=== PATIENT | male | born 1955 | race Caucasian/White ===

== ENCOUNTER 2018-04-22 19:13 | Inpatient (IN) ==
[2018-04-22] MEDS ORDERED: ALUM/MAG/SIMETH/LIDO VISC 1:1 30 ML BOTTLE PO STA (19:34)
[2018-04-22] MEDS ORDERED: methylPREDNISolone SOD SUC 125 MG/2 ML VIAL IV STA (19:34)
[2018-04-22] MEDS ORDERED: SODIUM CHLORIDE 0.9% 500 ML IV STA (19:34)
[2018-04-22] MEDS ORDERED: ASPIRIN 325 MG TABLET PO STA (19:34)
[2018-04-22] MEDS ORDERED: ONDANSETRON 4 MG/2 ML VIAL IV STA (19:34)
[2018-04-22] MEDS ORDERED: NITROGLYCERIN 2% OINT 1 INCH/GM PACK TOP STA (19:34)
[2018-04-22] MEDS ORDERED: ALBUTEROL/IPRATROPIUM 3 ML NEB RESP TX STA (19:34)
[2018-04-22 19:52] LABS: Basophils # 0.1 10*3/uL (0.0-0.2); Basophils % 0.5 % (0.0-0.8); Eosinophils # 0.2 10*3/uL (0.0-0.87); Eosinophils % 1.2 % (0.00-10.9); Hematocrit 44.3 VOL% (42.0-52.0); Hemoglobin 14.7 GM/DL (14.0-18.0); Immature Granulocytes % 0.6 %; Lymphocytes # 2.5 10*3/uL (1.4-4.0); Lymphocytes % 14.9 % (21.2-54.2); Mean Corpuscular HGB Conc 33.2 GM/DL (32-36); Mean Corpuscular Hemoglobin 27 PG (27-34); Mean Corpuscular Volume 81.9 FL (87-102); Mean Platelet Volume 8.8 FL (9.6-12.0); Monocytes # 1.3 10*3/uL (0.11-0.8); Monocytes % 7.6 % (1.7-12.7); Neutrophils # 12.4 10*3/uL (1.4-7.4); Neutrophils % 75.2 % (38.7-73.9); Platelet Count 324 T/CUMM (130-400); Red Blood Count 5.41 MC/CUMM (3.8-5.5); Red Cell Distribution Width 15.6 % (9.3-17.3); White Blood Count 16.4 T/CUMM (4-12)
[2018-04-22 19:59] LABS: PT Patient Result 10.5 SECS
[2018-04-22 20:11] LABS: Albumin 3.3 G/DL (3.4-5.0); Bilirubin,Total 0.6 MG/DL (0.2-1.0); Calcium 9.1 MG/DL (8.5-10.1); Potassium 3.9 MMOL/L (3.5-5.1); Total Protein 7.2 G/DL (6.4-8.3)
[2018-04-22] MEDS ORDERED: PIPERACILLIN/TAZOBACTAM 3,375 MG in SODIUM CHLORIDE 0.9% 100 ML IV STA (20:33)
[2018-04-22] MEDS ORDERED: ZALEPLON 5 MG CAPSULE PO PRN (22:44)
[2018-04-22] MEDS ORDERED: GLUCAGON 1 MG VIAL IM PRN (22:44)
[2018-04-22] MEDS ORDERED: DEXTROSE 50% 25 GM/50 ML VIAL IV PRN (22:44)
[2018-04-22] MEDS ORDERED: ONDANSETRON 4 MG/2 ML VIAL IV PRN (22:44)
[2018-04-23] MEDS: ALBUTEROL/IPRATROPIUM 3 ML NEB RESP TX SCH ×4 (01:17→20:12)
[2018-04-23 02:57] LABS: Basophils % 0.1 % (0.0-0.8); Hematocrit 41.6 VOL% (42.0-52.0); Hemoglobin 14.1 GM/DL (14.0-18.0); Immature Granulocytes % 0.8 %; Immature Granulocytes Absolute 0.08 #; Lymphocytes # 0.9 10*3/uL (1.4-4.0); Lymphocytes % 8.7 % (21.2-54.2); Mean Corpuscular HGB Conc 33.9 GM/DL (32-36); Mean Corpuscular Hemoglobin 27 PG (27-34); Mean Corpuscular Volume 80.8 FL (87-102); Mean Platelet Volume 8.7 FL (9.6-12.0); Monocytes # 0.1 10*3/uL (0.11-0.8); Monocytes % 1.1 % (1.7-12.7); Neutrophils # 8.8 10*3/uL (1.4-7.4); Neutrophils % 89.3 % (38.7-73.9); Platelet Count 269 T/CUMM (130-400); Red Blood Count 5.15 MC/CUMM (3.8-5.5); Red Cell Distribution Width 15.7 % (9.3-17.3); White Blood Count 9.9 T/CUMM (4-12)
[2018-04-23 03:35] LABS: Bilirubin,Total 0.7 MG/DL (0.2-1.0); Calcium 8.5 MG/DL (8.5-10.1); Potassium 4.2 MMOL/L (3.5-5.1); Total Protein 6.6 G/DL (6.4-8.3)
[2018-04-23] MEDS ORDERED: PIPERACILLIN/TAZOBACTAM 3,375 MG in SODIUM CHLORIDE 0.9% 100 ML IV SCH (06:00)
[2018-04-23] MEDS: PANTOPRAZOLE 40 MG TABLET PO SCH (08:05)
[2018-04-23] MEDS: INSULIN REGULAR 100 UNIT/ML SUBCUT SCH ×4 (08:05→20:38)
[2018-04-23 09:16] LABS: PT Patient Result 10.7 SECS; Partial Thromboplastin Time 25.5 SECS (0-40)
[2018-04-23] MEDS: methylPREDNISolone SOD SUC 40 MG/1 ML VIAL IV SCH ×2 (10:17→20:38)
[2018-04-23] MEDS: PIPERACILLIN/TAZOBACTAM 3,375 MG in SODIUM CHLORIDE 0.9% 100 ML IV SCH ×2 (13:51→21:53)
[2018-04-24] MEDS: ALBUTEROL/IPRATROPIUM 3 ML NEB RESP TX SCH ×4 (01:43→19:10)
[2018-04-24 03:53] LABS: Basophils % 0.1 % (0.0-0.8); Hemoglobin 14.6 GM/DL (14.0-18.0); Immature Granulocytes % 0.8 %; Immature Granulocytes Absolute 0.14 #; Lymphocytes # 1.5 10*3/uL (1.4-4.0); Lymphocytes % 8.5 % (21.2-54.2); Mean Corpuscular HGB Conc 33.2 GM/DL (32-36); Mean Corpuscular Hemoglobin 27 PG (27-34); Mean Corpuscular Volume 82.2 FL (87-102); Mean Platelet Volume 8.9 FL (9.6-12.0); Monocytes # 0.7 10*3/uL (0.11-0.8); Monocytes % 3.9 % (1.7-12.7); Neutrophils % 86.7 % (38.7-73.9); Platelet Count 299 T/CUMM (130-400); Red Blood Count 5.35 MC/CUMM (3.8-5.5); Red Cell Distribution Width 15.7 % (9.3-17.3); White Blood Count 17.3 T/CUMM (4-12)
[2018-04-24 03:57] LABS: Calcium 8.7 MG/DL (8.5-10.1); Osmolality,Calculated 278.1 MOS/KG (273-304); Potassium 4.1 MMOL/L (3.5-5.1)
[2018-04-24] MEDS: PIPERACILLIN/TAZOBACTAM 3,375 MG in SODIUM CHLORIDE 0.9% 100 ML IV SCH ×3 (07:15→20:47)
[2018-04-24] MEDS: INSULIN REGULAR 100 UNIT/ML SUBCUT SCH ×4 (07:52→22:03)
[2018-04-24] MEDS: PANTOPRAZOLE 40 MG TABLET PO SCH (08:22)
[2018-04-24] MEDS: methylPREDNISolone SOD SUC 40 MG/1 ML VIAL IV SCH ×2 (09:36→20:47)
[2018-04-24] MEDS: CITALOPRAM 40 MG TABLET PO SCH (13:02)
[2018-04-24] MEDS: metFORMIN 500 MG TABLET PO SCH (16:43)
[2018-04-24] MEDS ORDERED: INSULIN GLARGINE 100 UNIT/ML SUBCUT SCH (21:00)
[2018-04-25] MEDS: ALBUTEROL/IPRATROPIUM 3 ML NEB RESP TX SCH ×4 (00:43→19:17)
[2018-04-25] MEDS: PIPERACILLIN/TAZOBACTAM 3,375 MG in SODIUM CHLORIDE 0.9% 100 ML IV SCH ×3 (05:03→21:03)
[2018-04-25] MEDS: ALUMINUM/MAGNES/SIMETH MAX STR 30 ML UDCUP PO PRN (08:00)
[2018-04-25] MEDS: methylPREDNISolone SOD SUC 40 MG/1 ML VIAL IV SCH ×2 (08:02→21:01)
[2018-04-25] MEDS: metFORMIN 500 MG TABLET PO SCH ×2 (08:04→16:53)
[2018-04-25] MEDS: CITALOPRAM 40 MG TABLET PO SCH (08:04)
[2018-04-25] MEDS: PANTOPRAZOLE 40 MG TABLET PO SCH (08:04)
[2018-04-25] MEDS: INSULIN REGULAR 100 UNIT/ML SUBCUT SCH ×4 (08:04→21:05)
[2018-04-25] MEDS: INSULIN GLARGINE 100 UNIT/ML SUBCUT SCH (21:05)
[2018-04-26] MEDS: ALBUTEROL/IPRATROPIUM 3 ML NEB RESP TX SCH ×4 (00:27→19:05)
[2018-04-26] MEDS: PIPERACILLIN/TAZOBACTAM 3,375 MG in SODIUM CHLORIDE 0.9% 100 ML IV SCH ×3 (04:48→21:02)
[2018-04-26 06:59] LABS: Basophils % 0.2 % (0.0-0.8); Eosinophils % 0.1 % (0.00-10.9); Hemoglobin 14.6 GM/DL (14.0-18.0); Immature Granulocytes % 1.6 %; Immature Granulocytes Absolute 0.27 #; Lymphocytes # 2.2 10*3/uL (1.4-4.0); Lymphocytes % 12.7 % (21.2-54.2); Mean Corpuscular Hemoglobin 28 PG (27-34); Mean Corpuscular Volume 81.1 FL (87-102); Mean Platelet Volume 9.3 FL (9.6-12.0); Monocytes # 1.1 10*3/uL (0.11-0.8); Monocytes % 6.2 % (1.7-12.7); Neutrophils # 13.4 10*3/uL (1.4-7.4); Neutrophils % 79.2 % (38.7-73.9); Platelet Count 327 T/CUMM (130-400); Red Cell Distribution Width 16.3 % (9.3-17.3)
[2018-04-26] MEDS ORDERED: PROMETHAZINE 25 MG/1 ML VIAL IM ONE (07:00)
[2018-04-26 07:23] LABS: Calcium 8.9 MG/DL (8.5-10.1); Osmolality,Calculated 283.8 MOS/KG (273-304); Potassium 3.9 MMOL/L (3.5-5.1)
[2018-04-26] MEDS ORDERED: LIDOCAINE 1% 20 ML VIAL MISC INJ ONE (07:30)
[2018-04-26] MEDS ORDERED: MIDAZOLAM 2 MG/2 ML VIAL IV ONE (07:30)
[2018-04-26] MEDS ORDERED: MIDAZOLAM 2 MG/2 ML VIAL ONE (07:52)
[2018-04-26] MEDS ORDERED: LIDOCAINE 2% 20 ML VIAL RESP TX ONE (08:25)
[2018-04-26] MEDS ORDERED: LIDOCAINE 2% TOP JELLY 5 ML TUBE TOP ONE (08:38)
[2018-04-26] MEDS: INSULIN REGULAR 100 UNIT/ML SUBCUT SCH ×4 (08:40→21:22)
[2018-04-26] MEDS: CITALOPRAM 40 MG TABLET PO SCH ×2 (09:17→12:37)
[2018-04-26] MEDS: methylPREDNISolone SOD SUC 40 MG/1 ML VIAL IV SCH ×3 (09:17→21:02)
[2018-04-26] MEDS: PANTOPRAZOLE 40 MG TABLET PO SCH ×2 (09:17→12:37)
[2018-04-26] MEDS: metFORMIN 500 MG TABLET PO SCH ×3 (09:17→16:01)
[2018-04-26] MEDS ORDERED: NITROGLYCERIN SL 0.4 MG TABLET SL PRN (18:00)
[2018-04-26] MEDS ORDERED: ASPIRIN CHEW 81 MG TABLET PO ONE ×2 (18:00→18:02)
[2018-04-26] MEDS: ALUMINUM/MAGNES/SIMETH MAX STR 30 ML UDCUP PO PRN (18:10)
[2018-04-26 18:27] LABS: ABG Base Excess 0.4 MMOL/L (-2.5-2.5); ABG HCO3 24.7 MMOL/L (20-26); ABG Oxygen Saturation 96.8 % (95-100); ABG PCO2 41.3 MM HG (35-48); ABG PH 7.396 (7.35-7.45); ABG PO2 90.4 MM HG (80-95); ABG TCO2 21.8 MMOL/L (23-27)
[2018-04-26 18:40] LABS: Basophils % 0.1 % (0.0-0.8); Eosinophils % 0.1 % (0.00-10.9); Hematocrit 42.6 VOL% (42.0-52.0); Hemoglobin 13.8 GM/DL (14.0-18.0); Immature Granulocytes % 0.7 %; Immature Granulocytes Absolute 0.13 #; Lymphocytes # 1.1 10*3/uL (1.4-4.0); Lymphocytes % 6.1 % (21.2-54.2); Mean Corpuscular HGB Conc 32.4 GM/DL (32-36); Mean Corpuscular Hemoglobin 27 PG (27-34); Mean Corpuscular Volume 84.4 FL (87-102); Mean Platelet Volume 9.3 FL (9.6-12.0); Monocytes # 0.7 10*3/uL (0.11-0.8); Monocytes % 3.8 % (1.7-12.7); Neutrophils # 15.5 10*3/uL (1.4-7.4); Neutrophils % 89.2 % (38.7-73.9); Platelet Count 290 T/CUMM (130-400); Red Blood Count 5.05 MC/CUMM (3.8-5.5); Red Cell Distribution Width 16.6 % (9.3-17.3); White Blood Count 17.4 T/CUMM (4-12)
[2018-04-26 19:12] LABS: Bilirubin,Total 0.5 MG/DL (0.2-1.0); Calcium 8.6 MG/DL (8.5-10.1); Osmolality,Calculated 288.2 MOS/KG (273-304); Potassium 4.3 MMOL/L (3.5-5.1); Total Protein 6.5 G/DL (6.4-8.3)
[2018-04-26] MEDS: INSULIN GLARGINE 100 UNIT/ML SUBCUT SCH (21:21)
[2018-04-26] MEDS: buPROPion SR 150 MG TABLET PO SCH (21:21)
[2018-04-27] MEDS: ALBUTEROL/IPRATROPIUM 3 ML NEB RESP TX SCH ×4 (00:30→19:11)
[2018-04-27] MEDS: PIPERACILLIN/TAZOBACTAM 3,375 MG in SODIUM CHLORIDE 0.9% 100 ML IV SCH ×3 (04:27→21:22)
[2018-04-27] MEDS: methylPREDNISolone SOD SUC 40 MG/1 ML VIAL IV SCH (08:22)
[2018-04-27] MEDS: CITALOPRAM 40 MG TABLET PO SCH (08:23)
[2018-04-27] MEDS: PANTOPRAZOLE 40 MG TABLET PO SCH (08:23)
[2018-04-27] MEDS: buPROPion SR 150 MG TABLET PO SCH ×2 (08:23→20:58)
[2018-04-27] MEDS: metFORMIN 500 MG TABLET PO SCH ×2 (08:23→16:30)
[2018-04-27] MEDS: INSULIN REGULAR 100 UNIT/ML SUBCUT SCH ×4 (09:33→21:01)
[2018-04-27] MEDS: INSULIN GLARGINE 100 UNIT/ML SUBCUT SCH (21:00)
[2018-04-28] MEDS: ALBUTEROL/IPRATROPIUM 3 ML NEB RESP TX SCH ×4 (01:12→19:13)
[2018-04-28] MEDS: PIPERACILLIN/TAZOBACTAM 3,375 MG in SODIUM CHLORIDE 0.9% 100 ML IV SCH ×2 (04:54→13:57)
[2018-04-28] MEDS: INSULIN REGULAR 100 UNIT/ML SUBCUT SCH ×4 (07:57→21:30)
[2018-04-28] MEDS ORDERED: BENZTROPINE 0.5 MG TABLET PO SCH (09:00)
[2018-04-28] MEDS ORDERED: PERPHENAZINE 4 MG TABLET PO SCH (09:00)
[2018-04-28] MEDS ORDERED: methylPREDNISolone SOD SUC 40 MG/1 ML VIAL IV SCH (09:00)
[2018-04-28] MEDS: PANTOPRAZOLE 40 MG TABLET PO SCH (09:01)
[2018-04-28] MEDS: CITALOPRAM 40 MG TABLET PO SCH (09:01)
[2018-04-28] MEDS: buPROPion SR 150 MG TABLET PO SCH (09:01)
[2018-04-28] MEDS: predniSONE 20 MG TABLET PO SCH (09:01)
[2018-04-28] MEDS: metFORMIN 500 MG TABLET PO SCH (09:32)
[2018-04-28 09:36] LABS: Basophils # 0.1 10*3/uL (0.0-0.2); Basophils % 0.3 % (0.0-0.8); Eosinophils # 0.2 10*3/uL (0.0-0.87); Eosinophils % 1.2 % (0.00-10.9); Hematocrit 44.5 VOL% (42.0-52.0); Hemoglobin 14.6 GM/DL (14.0-18.0); Immature Granulocytes % 0.5 %; Immature Granulocytes Absolute 0.09 #; Lymphocytes # 1.9 10*3/uL (1.4-4.0); Lymphocytes % 11.3 % (21.2-54.2); Mean Corpuscular HGB Conc 32.8 GM/DL (32-36); Mean Corpuscular Hemoglobin 28 PG (27-34); Mean Corpuscular Volume 83.8 FL (87-102); Mean Platelet Volume 9.4 FL (9.6-12.0); Monocytes # 1.2 10*3/uL (0.11-0.8); Monocytes % 7.1 % (1.7-12.7); Neutrophils # 13.7 10*3/uL (1.4-7.4); Neutrophils % 79.6 % (38.7-73.9); Platelet Count 317 T/CUMM (130-400); Red Blood Count 5.31 MC/CUMM (3.8-5.5); Red Cell Distribution Width 16.3 % (9.3-17.3); White Blood Count 17.2 T/CUMM (4-12)
[2018-04-28 10:00] LABS: Calcium 8.7 MG/DL (8.5-10.1); Osmolality,Calculated 280.2 MOS/KG (273-304); Potassium 3.7 MMOL/L (3.5-5.1)
[2018-04-28 12:00] LABS: ABG Base Excess 4.9 MMOL/L (-2.5-2.5); ABG HCO3 28.6 MMOL/L (20-26); ABG Oxygen Saturation 91.3 % (95-100); ABG PCO2 40.5 MM HG (35-48); ABG PH 7.463 (7.35-7.45); ABG PO2 60.6 MM HG (80-95); ABG TCO2 24.6 MMOL/L (23-27)
[2018-04-28] MEDS ORDERED: LORazepam 2 MG/1 ML VIAL IV ONE (12:46)
[2018-04-28] MEDS: SODIUM CHLORIDE 0.45% 1,000 ML IV SCH (13:39)
[2018-04-28] MEDS: INSULIN GLARGINE 100 UNIT/ML SUBCUT SCH (21:29)
[2018-04-28] MEDS: DOXYCYCLINE HYCLATE INJ 100 MG in SODIUM CHLORIDE 0.9% 100 ML IV SCH (21:30)
[2018-04-29] MEDS: ALBUTEROL/IPRATROPIUM 3 ML NEB RESP TX SCH ×4 (01:29→20:19)
[2018-04-29] MEDS: INSULIN REGULAR 100 UNIT/ML SUBCUT SCH ×4 (07:51→21:27)
[2018-04-29] MEDS: SODIUM CHLORIDE 0.45% 1,000 ML IV SCH ×3 (08:22→23:35)
[2018-04-29] MEDS: predniSONE 20 MG TABLET PO SCH (09:03)
[2018-04-29] MEDS: CITALOPRAM 20 MG TABLET PO SCH (09:03)
[2018-04-29] MEDS: DOXYCYCLINE HYCLATE INJ 100 MG in SODIUM CHLORIDE 0.9% 100 ML IV SCH ×2 (09:04→21:24)
[2018-04-29] MEDS: PANTOPRAZOLE 40 MG TABLET PO SCH (09:04)
[2018-04-29] MEDS: buPROPion SR 150 MG TABLET PO SCH (09:04)
[2018-04-29] MEDS: INSULIN GLARGINE 100 UNIT/ML SUBCUT SCH (21:27)
[2018-04-30] MEDS: ALBUTEROL/IPRATROPIUM 3 ML NEB RESP TX SCH ×4 (00:36→18:53)
[2018-04-30] MEDS: SODIUM CHLORIDE 0.45% 1,000 ML IV SCH ×2 (06:46→12:59)
[2018-04-30] MEDS: INSULIN REGULAR 100 UNIT/ML SUBCUT SCH ×4 (09:55→21:01)
[2018-04-30] MEDS: buPROPion SR 150 MG TABLET PO SCH (09:55)
[2018-04-30] MEDS: CITALOPRAM 20 MG TABLET PO SCH (09:55)
[2018-04-30] MEDS: PANTOPRAZOLE 40 MG TABLET PO SCH (09:56)
[2018-04-30] MEDS: predniSONE 20 MG TABLET PO SCH (09:56)
[2018-04-30] MEDS: DOXYCYCLINE HYCLATE INJ 100 MG in SODIUM CHLORIDE 0.9% 100 ML IV SCH ×2 (09:57→21:00)
[2018-04-30] MEDS: INSULIN GLARGINE 100 UNIT/ML SUBCUT SCH (21:00)
[2018-05-01] MEDS: ALBUTEROL/IPRATROPIUM 3 ML NEB RESP TX SCH ×2 (00:59→06:56)
[2018-05-01 05:32] LABS: Basophils # 0.1 10*3/uL (0.0-0.2); Basophils % 0.4 % (0.0-0.8); Eosinophils # 0.5 10*3/uL (0.0-0.87); Eosinophils % 3.5 % (0.00-10.9); Hematocrit 43.9 VOL% (42.0-52.0); Hemoglobin 14.8 GM/DL (14.0-18.0); Immature Granulocytes % 1.1 %; Immature Granulocytes Absolute 0.15 #; Lymphocytes # 2.3 10*3/uL (1.4-4.0); Lymphocytes % 16.5 % (21.2-54.2); Mean Corpuscular HGB Conc 33.7 GM/DL (32-36); Mean Corpuscular Hemoglobin 28 PG (27-34); Mean Corpuscular Volume 82.5 FL (87-102); Mean Platelet Volume 9.2 FL (9.6-12.0); Monocytes # 1.2 10*3/uL (0.11-0.8); Monocytes % 8.7 % (1.7-12.7); Neutrophils # 9.9 10*3/uL (1.4-7.4); Neutrophils % 69.8 % (38.7-73.9); Platelet Count 294 T/CUMM (130-400); Red Blood Count 5.32 MC/CUMM (3.8-5.5); Red Cell Distribution Width 15.8 % (9.3-17.3); White Blood Count 14.2 T/CUMM (4-12)
[2018-05-01 05:48] LABS: Calcium 9.5 MG/DL (8.5-10.1); Osmolality,Calculated 276.7 MOS/KG (273-304); Potassium 3.6 MMOL/L (3.5-5.1)
[2018-05-01] MEDS: INSULIN REGULAR 100 UNIT/ML SUBCUT SCH ×2 (07:40→11:54)
[2018-05-01] MEDS: SODIUM CHLORIDE 0.45% 1,000 ML IV SCH (07:40)
[2018-05-01] MEDS: DOXYCYCLINE HYCLATE INJ 100 MG in SODIUM CHLORIDE 0.9% 100 ML IV SCH (09:59)
[2018-05-01] MEDS: buPROPion SR 150 MG TABLET PO SCH (10:00)
[2018-05-01] MEDS: predniSONE 20 MG TABLET PO SCH (10:00)
[2018-05-01] MEDS: PANTOPRAZOLE 40 MG TABLET PO SCH (10:01)
[2018-05-01] MEDS: CITALOPRAM 20 MG TABLET PO SCH (10:01)
[2018-05-01 11:38] VITALS: BP 145/78
== END 2018-05-01 14:40 | disposition home or self-care (01) | DRG 167 ==
LOC: EDUNIT# → EDBD → N.ED 19:13 → N.EDINP 22:45 → N.2E 23:41
PROVIDERS: ADMIT Internal Medicine; ATTEND Internal Medicine

== ENCOUNTER 2018-06-27 07:00 | Inpatient (IN) ==
[2018-06-27] MEDS ORDERED: ALBUTEROL NEB SOLN 5 MG/ML 20 ML/BOTTLE CONT NEB STA (07:26)
[2018-06-27] MEDS ORDERED: methylPREDNISolone SOD SUC 125 MG/2 ML VIAL IV STA (07:26)
[2018-06-27 08:14] LABS: Basophils # 0.1 10*3/uL (0.0-0.2); Basophils % 0.6 % (0.0-0.8); Eosinophils # 0.4 10*3/uL (0.0-0.87); Eosinophils % 2.8 % (0.00-10.9); Hematocrit 42.3 VOL% (42.0-52.0); Immature Granulocytes % 0.4 %; Immature Granulocytes Absolute 0.06 #; Lymphocytes # 1.8 10*3/uL (1.4-4.0); Lymphocytes % 13.1 % (21.2-54.2); Mean Corpuscular HGB Conc 33.1 GM/DL (32-36); Mean Corpuscular Hemoglobin 28 PG (27-34); Mean Corpuscular Volume 82.9 FL (87-102); Mean Platelet Volume 8.6 FL (9.6-12.0); Neutrophils # 10.6 10*3/uL (1.4-7.4); Neutrophils % 76.1 % (38.7-73.9); Platelet Count 262 T/CUMM (130-400)
[2018-06-27 08:34] LABS: Albumin 3.5 G/DL (3.4-5.0); Bilirubin,Total 0.5 MG/DL (0.2-1.0); Calcium 8.5 MG/DL (8.5-10.1); Osmolality,Calculated 269.1 MOS/KG (273-304); Potassium 4.3 MMOL/L (3.5-5.1); Total Protein 6.7 G/DL (6.4-8.3)
[2018-06-27] MEDS ORDERED: cefTRIAXone 1,000 MG in SODIUM CHLORIDE 0.9% 100 ML IV STA (10:42)
[2018-06-27] MEDS ORDERED: ACETAMINOPHEN 325 MG TABLET PO PRN (11:17)
[2018-06-27] MEDS ORDERED: GLUCAGON 1 MG VIAL IM PRN (11:17)
[2018-06-27] MEDS ORDERED: ONDANSETRON 4 MG/2 ML VIAL IV PRN (11:17)
[2018-06-27] MEDS ORDERED: PROMETHAZINE 25 MG/1 ML VIAL IM PRN (11:17)
[2018-06-27] MEDS ORDERED: DEXTROSE 50% 25 GM/50 ML VIAL IV PRN (11:17)
[2018-06-27] MEDS ORDERED: ALBUTEROL 2.5 MG/3 ML NEB RESP TX PRN ×3 (11:21→11:23)
[2018-06-27] MEDS ORDERED: diphenhydrAMINE CAP 25 MG CAPSULE PO PRN (11:23)
[2018-06-27] MEDS: FLUTICASONE/SALMETEROL 250-50 DISKUS 14 DOSE INH SCH ×2 (13:06→21:52)
[2018-06-27] MEDS: INSULIN LISPRO 100 UNIT/ML SUBCUT SCH ×3 (13:06→22:01)
[2018-06-27] MEDS: ENOXAPARIN 40 MG/0.4 ML SYRINGE SUBCUT SCH (13:07)
[2018-06-27] MEDS: MONTELUKAST 10 MG TABLET PO SCH (13:07)
[2018-06-27] MEDS: SODIUM CHLORIDE 0.9% 1,000 ML IV SCH (13:07)
[2018-06-27] MEDS: LEVOFLOXACIN INJ 500 MG in PREMIX 1 EACH IV SCH (13:08)
[2018-06-27] MEDS: ALBUTEROL/IPRATROPIUM 3 ML NEB RESP TX SCH ×2 (13:50→19:27)
[2018-06-27] MEDS: methylPREDNISolone SOD SUC 40 MG/1 ML VIAL IV SCH ×2 (17:26→23:44)
[2018-06-27] MEDS: ATORVASTATIN 20 MG TABLET PO SCH (21:52)
[2018-06-27] MEDS: BENZTROPINE 0.5 MG TABLET PO SCH (21:52)
[2018-06-27] MEDS: VITAMIN E 400 UNIT CAPSULE PO SCH (21:52)
[2018-06-27] MEDS: hydrOXYzine HCL 10 MG TABLET PO SCH (21:52)
[2018-06-27] MEDS: LOSARTAN 50 MG TABLET PO SCH (21:52)
[2018-06-27] MEDS: MAGNESIUM CHLORIDE 64 MG TABLET PO SCH (21:52)
[2018-06-27] MEDS: PERPHENAZINE 2 MG TABLET PO SCH (22:00)
[2018-06-27] MEDS: INSULIN GLARGINE 100 UNIT/ML SUBCUT SCH (22:00)
[2018-06-28] MEDS: ALBUTEROL/IPRATROPIUM 3 ML NEB RESP TX SCH ×4 (00:17→18:50)
[2018-06-28 04:16] LABS: Basophils % 0.2 % (0.0-0.8); Eosinophils % 0.1 % (0.00-10.9); Hematocrit 42.2 VOL% (42.0-52.0); Hemoglobin 14.1 GM/DL (14.0-18.0); Immature Granulocytes % 1.1 %; Immature Granulocytes Absolute 0.18 #; Lymphocytes # 1.1 10*3/uL (1.4-4.0); Lymphocytes % 6.9 % (21.2-54.2); Mean Corpuscular HGB Conc 33.4 GM/DL (32-36); Mean Corpuscular Hemoglobin 28 PG (27-34); Mean Corpuscular Volume 83.9 FL (87-102); Mean Platelet Volume 9.1 FL (9.6-12.0); Monocytes # 0.4 10*3/uL (0.11-0.8); Monocytes % 2.7 % (1.7-12.7); Neutrophils # 14.8 10*3/uL (1.4-7.4); Platelet Count 278 T/CUMM (130-400); Red Blood Count 5.03 MC/CUMM (3.8-5.5); White Blood Count 16.6 T/CUMM (4-12)
[2018-06-28 04:55] LABS: Albumin 3.2 G/DL (3.4-5.0); Bilirubin,Total 0.6 MG/DL (0.2-1.0); Calcium 8.8 MG/DL (8.5-10.1); Risk Ratio 2.39; VLDL CHOLESTEROL 19.8 MG/DL
[2018-06-28] MEDS: INSULIN LISPRO 100 UNIT/ML SUBCUT SCH ×4 (07:57→21:30)
[2018-06-28] MEDS: predniSONE 10 MG TABLET PO SCH (08:01)
[2018-06-28] MEDS: FERROUS SULFATE 325 MG TABLET PO SCH (08:01)
[2018-06-28] MEDS: MAGNESIUM CHLORIDE 64 MG TABLET PO SCH ×2 (08:01→21:04)
[2018-06-28] MEDS: CHOLECALCIFEROL 1,000 UNIT TABLET PO SCH (08:01)
[2018-06-28] MEDS: VITAMIN E 400 UNIT CAPSULE PO SCH ×2 (08:01→21:04)
[2018-06-28] MEDS: LORATADINE 10 MG TABLET PO SCH (08:01)
[2018-06-28] MEDS: buPROPion SR 150 MG TABLET PO SCH (08:01)
[2018-06-28] MEDS: ASPIRIN EC 81 MG TABLET PO SCH (08:02)
[2018-06-28] MEDS: LOSARTAN 50 MG TABLET PO SCH ×2 (08:02→21:04)
[2018-06-28] MEDS: BENZTROPINE 0.5 MG TABLET PO SCH ×2 (08:02→21:04)
[2018-06-28] MEDS: methylPREDNISolone SOD SUC 40 MG/1 ML VIAL IV SCH ×2 (08:02→15:58)
[2018-06-28] MEDS: MULTIVITAMIN (BEROCCA) TABLET PO SCH (08:02)
[2018-06-28] MEDS: MONTELUKAST 10 MG TABLET PO SCH (08:02)
[2018-06-28] MEDS: CITALOPRAM 40 MG TABLET PO SCH (08:02)
[2018-06-28] MEDS: FLUTICASONE/SALMETEROL 250-50 DISKUS 14 DOSE INH SCH ×2 (08:06→21:30)
[2018-06-28] MEDS: OMEGA 3 ACID ETHYL ESTERS 1 GM CAPSULE PO SCH (08:07)
[2018-06-28] MEDS: SODIUM CHLORIDE 0.9% 1,000 ML IV SCH (08:10)
[2018-06-28] MEDS: PERPHENAZINE 2 MG TABLET PO SCH ×2 (08:10→21:04)
[2018-06-28] MEDS: LEVOFLOXACIN INJ 500 MG in PREMIX 1 EACH IV SCH (11:02)
[2018-06-28] MEDS: ENOXAPARIN 40 MG/0.4 ML SYRINGE SUBCUT SCH (11:03)
[2018-06-28] MEDS: hydrOXYzine HCL 10 MG TABLET PO SCH (21:04)
[2018-06-28] MEDS: ATORVASTATIN 20 MG TABLET PO SCH (21:04)
[2018-06-28] MEDS: INSULIN GLARGINE 100 UNIT/ML SUBCUT SCH (21:05)
[2018-06-29] MEDS: ALBUTEROL/IPRATROPIUM 3 ML NEB RESP TX SCH ×4 (00:20→19:10)
[2018-06-29] MEDS: methylPREDNISolone SOD SUC 40 MG/1 ML VIAL IV SCH ×3 (01:13→15:55)
[2018-06-29 03:24] LABS: Basophils % 0.2 % (0.0-0.8); Eosinophils % 0.1 % (0.00-10.9); Hematocrit 43.1 VOL% (42.0-52.0); Hemoglobin 13.9 GM/DL (14.0-18.0); Immature Granulocytes Absolute 0.21 #; Lymphocytes # 1.7 10*3/uL (1.4-4.0); Mean Corpuscular HGB Conc 32.3 GM/DL (32-36); Mean Corpuscular Hemoglobin 27 PG (27-34); Mean Platelet Volume 9.1 FL (9.6-12.0); Monocytes # 1.4 10*3/uL (0.11-0.8); Monocytes % 6.4 % (1.7-12.7); Neutrophils # 18.3 10*3/uL (1.4-7.4); Neutrophils % 84.3 % (38.7-73.9); Platelet Count 320 T/CUMM (130-400); Red Blood Count 5.13 MC/CUMM (3.8-5.5); Red Cell Distribution Width 15.4 % (9.3-17.3); White Blood Count 21.7 T/CUMM (4-12)
[2018-06-29 03:32] LABS: Calcium 9.2 MG/DL (8.5-10.1); Osmolality,Calculated 278.7 MOS/KG (273-304)
[2018-06-29 04:53] LABS: Band Neutrophils 2 % (0-10); Eosinophils 1 % (0-10); Lymphocytes 9 % (20-55); Nucleated Red Blood Cells 1 (0-5); Segmented Neutrophils 82 % (50-85); Total Cells Counted 100
[2018-06-29 04:54] LABS: Ovalocytes Few; Platelet Estimate Normal
[2018-06-29] MEDS: SODIUM CHLORIDE 0.9% 1,000 ML IV SCH (07:10)
[2018-06-29] MEDS: predniSONE 10 MG TABLET PO SCH (09:26)
[2018-06-29] MEDS: FERROUS SULFATE 325 MG TABLET PO SCH (09:26)
[2018-06-29] MEDS: ASPIRIN EC 81 MG TABLET PO SCH (09:26)
[2018-06-29] MEDS: PERPHENAZINE 2 MG TABLET PO SCH ×2 (09:26→20:56)
[2018-06-29] MEDS: OMEGA 3 ACID ETHYL ESTERS 1 GM CAPSULE PO SCH (09:26)
[2018-06-29] MEDS: LOSARTAN 50 MG TABLET PO SCH ×2 (09:26→20:56)
[2018-06-29] MEDS: MONTELUKAST 10 MG TABLET PO SCH (09:26)
[2018-06-29] MEDS: LORATADINE 10 MG TABLET PO SCH (09:26)
[2018-06-29] MEDS: MAGNESIUM CHLORIDE 64 MG TABLET PO SCH ×2 (09:26→20:56)
[2018-06-29] MEDS: CHOLECALCIFEROL 1,000 UNIT TABLET PO SCH (09:26)
[2018-06-29] MEDS: CITALOPRAM 40 MG TABLET PO SCH (09:26)
[2018-06-29] MEDS: MULTIVITAMIN (BEROCCA) TABLET PO SCH (09:26)
[2018-06-29] MEDS: VITAMIN E 400 UNIT CAPSULE PO SCH ×2 (09:26→20:56)
[2018-06-29] MEDS: buPROPion SR 150 MG TABLET PO SCH (09:26)
[2018-06-29] MEDS: BENZTROPINE 0.5 MG TABLET PO SCH ×2 (09:26→20:56)
[2018-06-29] MEDS: FLUTICASONE/SALMETEROL 250-50 DISKUS 14 DOSE INH SCH ×2 (09:27→20:59)
[2018-06-29] MEDS: INSULIN LISPRO 100 UNIT/ML SUBCUT SCH ×4 (10:30→20:57)
[2018-06-29] MEDS: LEVOFLOXACIN INJ 500 MG in PREMIX 1 EACH IV SCH (11:34)
[2018-06-29] MEDS: ATORVASTATIN 20 MG TABLET PO SCH (20:56)
[2018-06-29] MEDS: INSULIN GLARGINE 100 UNIT/ML SUBCUT SCH (20:57)
[2018-06-29] MEDS: hydrOXYzine HCL 10 MG TABLET PO SCH (20:57)
[2018-06-30] MEDS: ALBUTEROL/IPRATROPIUM 3 ML NEB RESP TX SCH ×4 (00:10→19:25)
[2018-06-30] MEDS: methylPREDNISolone SOD SUC 40 MG/1 ML VIAL IV SCH ×2 (00:15→13:08)
[2018-06-30] MEDS: SODIUM CHLORIDE 0.9% 1,000 ML IV SCH ×2 (06:45→22:44)
[2018-06-30 06:48] LABS: Basophils % 0.1 % (0.0-0.8); Hematocrit 40.9 VOL% (42.0-52.0); Hemoglobin 13.3 GM/DL (14.0-18.0); Immature Granulocytes % 0.9 %; Immature Granulocytes Absolute 0.15 #; Lymphocytes # 1.3 10*3/uL (1.4-4.0); Lymphocytes % 7.9 % (21.2-54.2); Mean Corpuscular HGB Conc 32.5 GM/DL (32-36); Mean Corpuscular Hemoglobin 28 PG (27-34); Mean Corpuscular Volume 84.5 FL (87-102); Monocytes # 0.7 10*3/uL (0.11-0.8); Monocytes % 4.4 % (1.7-12.7); Neutrophils # 14.4 10*3/uL (1.4-7.4); Neutrophils % 86.7 % (38.7-73.9); Platelet Count 270 T/CUMM (130-400); Red Blood Count 4.84 MC/CUMM (3.8-5.5); Red Cell Distribution Width 15.2 % (9.3-17.3); White Blood Count 16.6 T/CUMM (4-12)
[2018-06-30 07:23] LABS: Calcium 9.1 MG/DL (8.5-10.1); Osmolality,Calculated 277.5 MOS/KG (273-304); Potassium 4.2 MMOL/L (3.5-5.1)
[2018-06-30] MEDS: INSULIN LISPRO 100 UNIT/ML SUBCUT SCH ×4 (09:24→21:11)
[2018-06-30] MEDS: PERPHENAZINE 2 MG TABLET PO SCH ×2 (09:43→21:09)
[2018-06-30] MEDS: OMEGA 3 ACID ETHYL ESTERS 1 GM CAPSULE PO SCH (09:44)
[2018-06-30] MEDS: CITALOPRAM 40 MG TABLET PO SCH (09:44)
[2018-06-30] MEDS: MONTELUKAST 10 MG TABLET PO SCH (09:45)
[2018-06-30] MEDS: predniSONE 10 MG TABLET PO SCH (09:45)
[2018-06-30] MEDS: ASPIRIN EC 81 MG TABLET PO SCH (09:45)
[2018-06-30] MEDS: BENZTROPINE 0.5 MG TABLET PO SCH ×2 (09:45→21:15)
[2018-06-30] MEDS: VITAMIN E 400 UNIT CAPSULE PO SCH ×2 (09:45→21:08)
[2018-06-30] MEDS: CHOLECALCIFEROL 1,000 UNIT TABLET PO SCH (09:46)
[2018-06-30] MEDS: LORATADINE 10 MG TABLET PO SCH (09:47)
[2018-06-30] MEDS: FERROUS SULFATE 325 MG TABLET PO SCH (09:47)
[2018-06-30] MEDS: LOSARTAN 50 MG TABLET PO SCH ×2 (09:47→21:09)
[2018-06-30] MEDS: MULTIVITAMIN (BEROCCA) TABLET PO SCH (09:47)
[2018-06-30] MEDS: buPROPion SR 150 MG TABLET PO SCH (09:47)
[2018-06-30] MEDS: MAGNESIUM CHLORIDE 64 MG TABLET PO SCH ×2 (09:48→21:09)
[2018-06-30] MEDS: FLUTICASONE/SALMETEROL 250-50 DISKUS 14 DOSE INH SCH ×2 (09:50→21:08)
[2018-06-30] MEDS: LEVOFLOXACIN INJ 500 MG in PREMIX 1 EACH IV SCH (13:08)
[2018-06-30] MEDS: PANTOPRAZOLE 40 MG TABLET PO SCH (17:00)
[2018-06-30] MEDS: hydrOXYzine HCL 10 MG TABLET PO SCH (21:09)
[2018-06-30] MEDS: ATORVASTATIN 20 MG TABLET PO SCH (21:09)
[2018-06-30] MEDS: INSULIN GLARGINE 100 UNIT/ML SUBCUT SCH (21:10)
[2018-07-01] MEDS: ALBUTEROL/IPRATROPIUM 3 ML NEB RESP TX SCH ×4 (00:58→19:56)
[2018-07-01] MEDS: methylPREDNISolone SOD SUC 40 MG/1 ML VIAL IV SCH ×2 (01:46→16:11)
[2018-07-01] MEDS: CHOLECALCIFEROL 1,000 UNIT TABLET PO SCH (09:17)
[2018-07-01] MEDS: BENZTROPINE 0.5 MG TABLET PO SCH ×2 (09:18→23:01)
[2018-07-01] MEDS: MAGNESIUM CHLORIDE 64 MG TABLET PO SCH ×2 (09:18→23:01)
[2018-07-01] MEDS: VITAMIN E 400 UNIT CAPSULE PO SCH ×2 (09:18→23:01)
[2018-07-01] MEDS: buPROPion SR 150 MG TABLET PO SCH (09:18)
[2018-07-01] MEDS: PANTOPRAZOLE 40 MG TABLET PO SCH (09:18)
[2018-07-01] MEDS: MULTIVITAMIN (BEROCCA) TABLET PO SCH (09:18)
[2018-07-01] MEDS: CITALOPRAM 40 MG TABLET PO SCH (09:19)
[2018-07-01] MEDS: PERPHENAZINE 2 MG TABLET PO SCH ×2 (09:19→23:01)
[2018-07-01] MEDS: OMEGA 3 ACID ETHYL ESTERS 1 GM CAPSULE PO SCH (09:21)
[2018-07-01] MEDS: LORATADINE 10 MG TABLET PO SCH (09:22)
[2018-07-01] MEDS: LOSARTAN 50 MG TABLET PO SCH ×2 (09:22→23:01)
[2018-07-01] MEDS: ASPIRIN EC 81 MG TABLET PO SCH (09:22)
[2018-07-01] MEDS: FERROUS SULFATE 325 MG TABLET PO SCH (09:22)
[2018-07-01] MEDS: INSULIN LISPRO 100 UNIT/ML SUBCUT SCH ×4 (09:25→23:03)
[2018-07-01] MEDS: FLUTICASONE/SALMETEROL 250-50 DISKUS 14 DOSE INH SCH ×2 (09:26→23:05)
[2018-07-01] MEDS: MONTELUKAST 10 MG TABLET PO SCH (09:27)
[2018-07-01] MEDS: LEVOFLOXACIN INJ 500 MG in PREMIX 1 EACH IV SCH (16:12)
[2018-07-01] MEDS: SODIUM CHLORIDE 0.9% 1,000 ML IV SCH (23:00)
[2018-07-01] MEDS: hydrOXYzine HCL 10 MG TABLET PO SCH (23:01)
[2018-07-01] MEDS: ATORVASTATIN 20 MG TABLET PO SCH (23:01)
[2018-07-01] MEDS: INSULIN GLARGINE 100 UNIT/ML SUBCUT SCH (23:03)
[2018-07-02] MEDS: methylPREDNISolone SOD SUC 40 MG/1 ML VIAL IV SCH ×2 (01:11→13:44)
[2018-07-02] MEDS: ALBUTEROL/IPRATROPIUM 3 ML NEB RESP TX SCH ×4 (01:43→19:27)
[2018-07-02 05:59] LABS: Basophils % 0.2 % (0.0-0.8); Eosinophils % 0.1 % (0.00-10.9); Hematocrit 42.5 VOL% (42.0-52.0); Hemoglobin 14.3 GM/DL (14.0-18.0); Immature Granulocytes Absolute 0.17 #; Mean Corpuscular HGB Conc 33.6 GM/DL (32-36); Mean Corpuscular Hemoglobin 27 PG (27-34); Mean Corpuscular Volume 81.6 FL (87-102); Mean Platelet Volume 9.4 FL (9.6-12.0); Monocytes # 0.5 10*3/uL (0.11-0.8); Monocytes % 3.1 % (1.7-12.7); Neutrophils # 14.9 10*3/uL (1.4-7.4); Neutrophils % 89.6 % (38.7-73.9); Platelet Count 319 T/CUMM (130-400); Red Blood Count 5.21 MC/CUMM (3.8-5.5); Red Cell Distribution Width 15.2 % (9.3-17.3); White Blood Count 16.7 T/CUMM (4-12)
[2018-07-02 06:03] LABS: Osmolality,Calculated 278.1 MOS/KG (273-304)
[2018-07-02] MEDS: INSULIN LISPRO 100 UNIT/ML SUBCUT SCH ×4 (07:44→20:53)
[2018-07-02] MEDS: BENZTROPINE 0.5 MG TABLET PO SCH ×2 (08:26→20:48)
[2018-07-02] MEDS: FLUTICASONE/SALMETEROL 250-50 DISKUS 14 DOSE INH SCH ×2 (08:26→20:51)
[2018-07-02] MEDS: PANTOPRAZOLE 40 MG TABLET PO SCH (08:26)
[2018-07-02] MEDS: VITAMIN E 400 UNIT CAPSULE PO SCH ×2 (08:26→20:48)
[2018-07-02] MEDS: OMEGA 3 ACID ETHYL ESTERS 1 GM CAPSULE PO SCH (08:26)
[2018-07-02] MEDS: CHOLECALCIFEROL 1,000 UNIT TABLET PO SCH (08:26)
[2018-07-02] MEDS: FERROUS SULFATE 325 MG TABLET PO SCH (08:26)
[2018-07-02] MEDS: PERPHENAZINE 2 MG TABLET PO SCH ×2 (08:27→20:47)
[2018-07-02] MEDS: MAGNESIUM CHLORIDE 64 MG TABLET PO SCH ×2 (08:27→20:48)
[2018-07-02] MEDS: MULTIVITAMIN (BEROCCA) TABLET PO SCH (08:27)
[2018-07-02] MEDS: buPROPion SR 150 MG TABLET PO SCH (08:27)
[2018-07-02] MEDS: CITALOPRAM 40 MG TABLET PO SCH (08:27)
[2018-07-02] MEDS: MONTELUKAST 10 MG TABLET PO SCH (08:27)
[2018-07-02] MEDS: LOSARTAN 50 MG TABLET PO SCH ×2 (08:27→20:48)
[2018-07-02] MEDS: LORATADINE 10 MG TABLET PO SCH (08:27)
[2018-07-02] MEDS: ASPIRIN EC 81 MG TABLET PO SCH (08:27)
[2018-07-02 09:20] LABS: ABG Base Excess 0.3 MMOL/L (-2.5-2.5); ABG HCO3 24.7 MMOL/L (20-26); ABG Oxygen Saturation 96.5 % (95-100); ABG PCO2 42.3 MM HG (35-48); ABG PH 7.388 (7.35-7.45); ABG PO2 87.7 MM HG (80-95); ABG TCO2 21.9 MMOL/L (23-27)
[2018-07-02] MEDS: LEVOFLOXACIN INJ 500 MG in PREMIX 1 EACH IV SCH (12:01)
[2018-07-02] MEDS: ATORVASTATIN 20 MG TABLET PO SCH (20:47)
[2018-07-02] MEDS: INSULIN GLARGINE 100 UNIT/ML SUBCUT SCH (20:49)
[2018-07-02] MEDS: hydrOXYzine HCL 10 MG TABLET PO SCH (20:51)
[2018-07-02] MEDS: SODIUM CHLORIDE 0.9% 1,000 ML IV SCH (20:52)
[2018-07-03] MEDS: ALBUTEROL/IPRATROPIUM 3 ML NEB RESP TX SCH ×4 (00:05→19:19)
[2018-07-03] MEDS: methylPREDNISolone SOD SUC 40 MG/1 ML VIAL IV SCH ×2 (01:50→12:30)
[2018-07-03 06:34] LABS: Basophils % 0.2 % (0.0-0.8); Eosinophils # 0.1 10*3/uL (0.0-0.87); Eosinophils % 0.8 % (0.00-10.9); Hematocrit 43.8 VOL% (42.0-52.0); Hemoglobin 14.2 GM/DL (14.0-18.0); Immature Granulocytes % 1.7 %; Immature Granulocytes Absolute 0.28 #; Lymphocytes # 1.3 10*3/uL (1.4-4.0); Lymphocytes % 7.9 % (21.2-54.2); Mean Corpuscular HGB Conc 32.4 GM/DL (32-36); Mean Corpuscular Hemoglobin 27 PG (27-34); Mean Corpuscular Volume 84.4 FL (87-102); Mean Platelet Volume 9.1 FL (9.6-12.0); Monocytes # 0.5 10*3/uL (0.11-0.8); Monocytes % 2.8 % (1.7-12.7); Neutrophils # 14.4 10*3/uL (1.4-7.4); Neutrophils % 86.6 % (38.7-73.9); Platelet Count 318 T/CUMM (130-400); Red Blood Count 5.19 MC/CUMM (3.8-5.5); Red Cell Distribution Width 15.2 % (9.3-17.3); White Blood Count 16.7 T/CUMM (4-12)
[2018-07-03 06:48] LABS: Calcium 8.3 MG/DL (8.5-10.1); Potassium 3.9 MMOL/L (3.5-5.1)
[2018-07-03] MEDS: INSULIN LISPRO 100 UNIT/ML SUBCUT SCH ×4 (10:08→20:29)
[2018-07-03] MEDS: PERPHENAZINE 2 MG TABLET PO SCH ×2 (10:12→20:28)
[2018-07-03] MEDS: buPROPion SR 150 MG TABLET PO SCH (10:12)
[2018-07-03] MEDS: LORATADINE 10 MG TABLET PO SCH (10:12)
[2018-07-03] MEDS: CHOLECALCIFEROL 1,000 UNIT TABLET PO SCH (10:13)
[2018-07-03] MEDS: PANTOPRAZOLE 40 MG TABLET PO SCH (10:13)
[2018-07-03] MEDS: VITAMIN E 400 UNIT CAPSULE PO SCH ×2 (10:14→20:28)
[2018-07-03] MEDS: ASPIRIN EC 81 MG TABLET PO SCH (10:15)
[2018-07-03] MEDS: BENZTROPINE 0.5 MG TABLET PO SCH ×2 (10:15→20:28)
[2018-07-03] MEDS: OMEGA 3 ACID ETHYL ESTERS 1 GM CAPSULE PO SCH (10:16)
[2018-07-03] MEDS: MULTIVITAMIN (BEROCCA) TABLET PO SCH (10:16)
[2018-07-03] MEDS: LOSARTAN 50 MG TABLET PO SCH ×2 (10:16→20:28)
[2018-07-03] MEDS: FERROUS SULFATE 325 MG TABLET PO SCH (10:16)
[2018-07-03] MEDS: CITALOPRAM 40 MG TABLET PO SCH (10:16)
[2018-07-03] MEDS: MONTELUKAST 10 MG TABLET PO SCH (10:16)
[2018-07-03] MEDS: FLUTICASONE/SALMETEROL 250-50 DISKUS 14 DOSE INH SCH ×2 (10:17→20:31)
[2018-07-03] MEDS: MAGNESIUM CHLORIDE 64 MG TABLET PO SCH ×2 (10:30→20:28)
[2018-07-03] MEDS: LEVOFLOXACIN INJ 500 MG in PREMIX 1 EACH IV SCH (12:34)
[2018-07-03] MEDS: hydrOXYzine HCL 10 MG TABLET PO SCH (20:28)
[2018-07-03] MEDS: ATORVASTATIN 20 MG TABLET PO SCH (20:28)
[2018-07-03] MEDS: INSULIN GLARGINE 100 UNIT/ML SUBCUT SCH (20:29)
[2018-07-03] MEDS: SODIUM CHLORIDE 0.9% 1,000 ML IV SCH (20:32)
[2018-07-04] MEDS: ALBUTEROL/IPRATROPIUM 3 ML NEB RESP TX SCH ×4 (01:23→19:49)
[2018-07-04] MEDS: methylPREDNISolone SOD SUC 40 MG/1 ML VIAL IV SCH ×2 (01:37→13:07)
[2018-07-04 06:29] LABS: Basophils % 0.1 % (0.0-0.8); Eosinophils % 0.2 % (0.00-10.9); Hematocrit 41.9 VOL% (42.0-52.0); Immature Granulocytes % 1.3 %; Immature Granulocytes Absolute 0.22 #; Lymphocytes # 1.3 10*3/uL (1.4-4.0); Lymphocytes % 7.6 % (21.2-54.2); Mean Corpuscular HGB Conc 33.4 GM/DL (32-36); Mean Corpuscular Hemoglobin 28 PG (27-34); Mean Corpuscular Volume 82.5 FL (87-102); Monocytes # 0.5 10*3/uL (0.11-0.8); Monocytes % 2.7 % (1.7-12.7); Neutrophils # 14.6 10*3/uL (1.4-7.4); Neutrophils % 88.1 % (38.7-73.9); Platelet Count 333 T/CUMM (130-400); Red Blood Count 5.08 MC/CUMM (3.8-5.5); Red Cell Distribution Width 15.3 % (9.3-17.3); White Blood Count 16.6 T/CUMM (4-12)
[2018-07-04] MEDS: INSULIN LISPRO 100 UNIT/ML SUBCUT SCH ×4 (08:01→20:47)
[2018-07-04] MEDS: CHOLECALCIFEROL 1,000 UNIT TABLET PO SCH (08:01)
[2018-07-04] MEDS: MAGNESIUM CHLORIDE 64 MG TABLET PO SCH ×2 (08:01→20:46)
[2018-07-04] MEDS: BENZTROPINE 0.5 MG TABLET PO SCH ×2 (08:02→20:47)
[2018-07-04] MEDS: MONTELUKAST 10 MG TABLET PO SCH (08:02)
[2018-07-04] MEDS: MULTIVITAMIN (BEROCCA) TABLET PO SCH (08:02)
[2018-07-04] MEDS: ASPIRIN EC 81 MG TABLET PO SCH (08:02)
[2018-07-04] MEDS: PANTOPRAZOLE 40 MG TABLET PO SCH (08:02)
[2018-07-04] MEDS: buPROPion SR 150 MG TABLET PO SCH (08:02)
[2018-07-04] MEDS: LORATADINE 10 MG TABLET PO SCH (08:02)
[2018-07-04] MEDS: CITALOPRAM 40 MG TABLET PO SCH (08:02)
[2018-07-04] MEDS: OMEGA 3 ACID ETHYL ESTERS 1 GM CAPSULE PO SCH (08:02)
[2018-07-04] MEDS: FERROUS SULFATE 325 MG TABLET PO SCH (08:02)
[2018-07-04] MEDS: VITAMIN E 400 UNIT CAPSULE PO SCH ×2 (08:02→20:46)
[2018-07-04] MEDS: PERPHENAZINE 2 MG TABLET PO SCH ×2 (08:02→20:46)
[2018-07-04] MEDS: LOSARTAN 50 MG TABLET PO SCH ×2 (08:02→20:47)
[2018-07-04] MEDS: FLUTICASONE/SALMETEROL 250-50 DISKUS 14 DOSE INH SCH ×2 (08:06→20:46)
[2018-07-04] MEDS: LEVOFLOXACIN INJ 500 MG in PREMIX 1 EACH IV SCH (13:06)
[2018-07-04 13:12] LABS: PT Patient Result 10.3 SECS; Partial Thromboplastin Time 22.9 SECS (0-40)
[2018-07-04] MEDS: ATORVASTATIN 20 MG TABLET PO SCH (20:46)
[2018-07-04] MEDS: hydrOXYzine HCL 10 MG TABLET PO SCH (20:47)
[2018-07-04] MEDS: INSULIN GLARGINE 100 UNIT/ML SUBCUT SCH (20:47)
[2018-07-04] MEDS ORDERED: CYCLOBENZAPRINE 10 MG TABLET PO ONE (23:30)
[2018-07-04] MEDS: SODIUM CHLORIDE 0.9% 1,000 ML IV SCH (23:32)
[2018-07-05] MEDS ORDERED: BUPIVACAINE LIPOSOMAL 20 ML/266 MG VIAL INFILTRAT ONE (00:01)
[2018-07-05] MEDS: methylPREDNISolone SOD SUC 40 MG/1 ML VIAL IV SCH ×2 (01:04→17:27)
[2018-07-05] MEDS: ALBUTEROL/IPRATROPIUM 3 ML NEB RESP TX SCH ×4 (01:28→18:54)
[2018-07-05 06:28] LABS: Basophils % 0.2 % (0.0-0.8); Eosinophils % 0.1 % (0.00-10.9); Hematocrit 46.9 VOL% (42.0-52.0); Hemoglobin 15.6 GM/DL (14.0-18.0); Immature Granulocytes % 1.5 %; Immature Granulocytes Absolute 0.32 #; Lymphocytes # 1.4 10*3/uL (1.4-4.0); Lymphocytes % 6.2 % (21.2-54.2); Mean Corpuscular HGB Conc 33.3 GM/DL (32-36); Mean Corpuscular Hemoglobin 28 PG (27-34); Mean Corpuscular Volume 82.9 FL (87-102); Mean Platelet Volume 8.8 FL (9.6-12.0); Monocytes # 0.5 10*3/uL (0.11-0.8); Monocytes % 2.2 % (1.7-12.7); Neutrophils # 19.6 10*3/uL (1.4-7.4); Neutrophils % 89.8 % (38.7-73.9); Platelet Count 428 T/CUMM (130-400); Red Blood Count 5.66 MC/CUMM (3.8-5.5); Red Cell Distribution Width 15.5 % (9.3-17.3); White Blood Count 21.8 T/CUMM (4-12)
[2018-07-05] MEDS ORDERED: TISSUE ADHESIVE 1 EACH APPLICATOR TOP ONE (06:44)
[2018-07-05] MEDS ORDERED: BUPIVACAINE LIPOSOMAL 20 ML/266 MG VIAL ONE (06:44)
[2018-07-05] MEDS: PERPHENAZINE 2 MG TABLET PO SCH ×3 (06:49→21:21)
[2018-07-05] MEDS: BENZTROPINE 0.5 MG TABLET PO SCH ×3 (06:49→21:21)
[2018-07-05] MEDS: CITALOPRAM 40 MG TABLET PO SCH ×2 (06:49→10:58)
[2018-07-05] MEDS: buPROPion SR 150 MG TABLET PO SCH ×2 (06:49→10:58)
[2018-07-05] MEDS: MONTELUKAST 10 MG TABLET PO SCH ×2 (06:49→10:58)
[2018-07-05] MEDS: PANTOPRAZOLE 40 MG TABLET PO SCH ×2 (06:49→10:58)
[2018-07-05] MEDS: FLUTICASONE/SALMETEROL 250-50 DISKUS 14 DOSE INH SCH ×3 (06:56→21:16)
[2018-07-05 06:59] LABS: Osmolality,Calculated 270.8 MOS/KG (273-304); Potassium 3.8 MMOL/L (3.5-5.1)
[2018-07-05 07:01] LABS: Band Neutrophils 1 % (0-10); Hypochromasia 1+; Lymphocytes 4 % (20-55); Platelet Estimate Adequate; Segmented Neutrophils 95 % (50-85); Total Cells Counted 100
[2018-07-05] MEDS ORDERED: DEXTROSE 50% 25 GM/50 ML VIAL IV ONE (07:41)
[2018-07-05] MEDS ORDERED: PHENYLEPHRINE DRIP 20 MG/250 ML PREMIX IV ONE (08:31)
[2018-07-05] MEDS ORDERED: HEPARIN/NACL 0.9% 2 UNITS/ML 500 ML IV ONE ×2 (08:35→14:02)
[2018-07-05] MEDS ORDERED: THROMBIN TOPICAL (RECOMBINANT) 5,000 UNIT VIAL TOP ONE (08:58)
[2018-07-05 09:23] LABS: Hematocrit 38.9 VOL% (42.0-52.0); Hemoglobin 12.4 GM/DL (14.0-18.0)
[2018-07-05] MEDS ORDERED: ONDANSETRON 4 MG/2 ML VIAL ONE (10:22)
[2018-07-05] MEDS ORDERED: HYDROmorphone 2 MG/1 ML VIAL ONE (10:22)
[2018-07-05] MEDS: HYDROmorphone 2 MG/1 ML VIAL IV PRN ×4 (10:25→11:56)
[2018-07-05] MEDS ORDERED: PROPOFOL 200 MG/20 ML VIAL IV ONE (10:32)
[2018-07-05] MEDS ORDERED: DESFLURANE 1 UNIT/15 MINUTE INH ONE (10:33)
[2018-07-05] MEDS ORDERED: fentaNYL 100 MCG/2 ML VIAL ONE (10:33)
[2018-07-05] MEDS ORDERED: MIDAZOLAM 2 MG/2 ML VIAL ONE (10:33)
[2018-07-05] MEDS ORDERED: GLYCOPYRROLATE 0.4 MG/2 ML VIAL ONE (10:33)
[2018-07-05] MEDS ORDERED: ROCURONIUM 100 MG/10 ML VIAL IV ONE (10:34)
[2018-07-05] MEDS ORDERED: NEOSTIGMINE 10 MG/10 ML VIAL ONE (10:34)
[2018-07-05 10:56] LABS: ABG Base Excess -7.5 MMOL/L (-2.5-2.5); ABG HCO3 18.3 MMOL/L (20-26); ABG Oxygen Saturation 95.1 % (95-100); ABG TCO2 21.8 MMOL/L (23-27)
[2018-07-05 10:57] LABS: ABG PH 7.134 (7.35-7.45)
[2018-07-05 10:58] LABS: ABG PCO2 70.6 MM HG (35-48)
[2018-07-05] MEDS ORDERED: SODIUM BICARBONATE 50 MEQ/50 ML SYRINGE IV ONE ×5 (11:04→13:48)
[2018-07-05] MEDS ORDERED: PHENYLEPHRINE DRIP 0 MG/0 ML PREMIX IV ONE (11:07)
[2018-07-05] MEDS ORDERED: ALBUTEROL/IPRATROPIUM 3 ML NEB RESP TX ONE ×2 (11:40→11:41)
[2018-07-05 11:53] LABS: ABG Base Excess -1.9 MMOL/L (-2.5-2.5); ABG HCO3 22.6 MMOL/L (20-26); ABG Oxygen Saturation 83.5 % (95-100); ABG PO2 62.2 MM HG (80-95); ABG TCO2 28.4 MMOL/L (23-27)
[2018-07-05] MEDS ORDERED: ONDANSETRON 4 MG/2 ML VIAL IV PRN (11:54)
[2018-07-05 11:57] LABS: ABG PCO2 89.7 MM HG (35-48); ABG PH 7.143 (7.35-7.45)
[2018-07-05] MEDS: PHENYLEPHRINE DRIP 40 MG/250 ML PREMIX IV PRN ×2 (12:20→14:55)
[2018-07-05] MEDS ORDERED: PROPOFOL 1,000 MG/100 ML BOTTLE IV ONE (12:27)
[2018-07-05] MEDS ORDERED: PHENYLEPHRINE 10 MG/1 ML VIAL IV ONE ×2 (12:45→15:50)
[2018-07-05] MEDS ORDERED: ALBUMIN 5% 50 GM in PREMIX 1 EACH IV ONE (13:30)
[2018-07-05] MEDS ORDERED: NOREPINEPHRINE 4 MG/4 ML VIAL IV ONE (13:39)
[2018-07-05] MEDS ORDERED: ALBUMIN 5% 12.5 GM/250 ML VIAL IV ONE (13:39)
[2018-07-05] MEDS ORDERED: CALCIUM GLUCONATE 1,000 MG/10 ML VIAL IV ONE (13:44)
[2018-07-05] MEDS ORDERED: CALCIUM CHLORIDE 1,000 MG/10 ML SYRINGE IV ONE ×2 (13:44→13:47)
[2018-07-05] MEDS: NOREPINEPHRINE 8 MG in SODIUM CHLORIDE 0.9% 242 ML IV PRN (13:44)
[2018-07-05 13:52] LABS: ABG Base Excess -2.8 MMOL/L (-2.5-2.5); ABG Oxygen Saturation 96.1 % (95-100); ABG PCO2 55.3 MM HG (35-48); ABG PH 7.264 (7.35-7.45); ABG PO2 93.6 MM HG (80-95); ABG TCO2 22.9 MMOL/L (23-27); Glucose Heart Surgery 187 MG/DL (74-106); Hematocrit Heart Surgery 33.8 PERCENT (42-52); Potassium Heart/CVR 4.7 MMOL/L (3.5-5.1)
[2018-07-05] MEDS ORDERED: SODIUM CHLORIDE 0.9% 1,000 ML IV PRN (13:53)
[2018-07-05] MEDS ORDERED: HYDROCORTISONE 100 MG VIAL IV ONE (14:00)
[2018-07-05] MEDS ORDERED: HYDROCORTISONE 100 MG VIAL ONE (14:04)
[2018-07-05] MEDS: SODIUM BICARB INJ 50 MEQ in SODIUM CHLORIDE 0.45% 1,000 ML IV SCH ×2 (14:38→23:28)
[2018-07-05] MEDS: DEXMEDETOMIDINE 200 MCG in SODIUM CHLORIDE 0.9% 48 ML IV PRN ×2 (14:55→20:13)
[2018-07-05] MEDS: INSULIN LISPRO 100 UNIT/ML SUBCUT SCH ×4 (14:57→20:47)
[2018-07-05] MEDS: ASPIRIN EC 81 MG TABLET PO SCH (15:00)
[2018-07-05] MEDS: LOSARTAN 50 MG TABLET PO SCH ×2 (15:00→20:47)
[2018-07-05] MEDS: LORATADINE 10 MG TABLET PO SCH (15:00)
[2018-07-05] MEDS: MULTIVITAMIN (BEROCCA) TABLET PO SCH (15:00)
[2018-07-05] MEDS: OMEGA 3 ACID ETHYL ESTERS 1 GM CAPSULE PO SCH (15:01)
[2018-07-05] MEDS: CHOLECALCIFEROL 1,000 UNIT TABLET PO SCH (15:01)
[2018-07-05] MEDS: VITAMIN E 400 UNIT CAPSULE PO SCH ×2 (15:01→21:21)
[2018-07-05] MEDS: MAGNESIUM CHLORIDE 64 MG TABLET PO SCH ×2 (15:01→21:17)
[2018-07-05] MEDS: FERROUS SULFATE 325 MG TABLET PO SCH (15:46)
[2018-07-05] MEDS: PROPOFOL 1,000 MG/100 ML BOTTLE IV SCH (15:48)
[2018-07-05] MEDS: GABAPENTIN 100 MG CAPSULE PO SCH ×2 (15:49→21:21)
[2018-07-05] MEDS ORDERED: SODIUM CHLORIDE 0.9% 100 ML IV ONE (15:50)
[2018-07-05] MEDS: KETOROLAC 15 MG/1 ML VIAL IV SCH ×2 (17:06→18:44)
[2018-07-05] MEDS: SODIUM CHLORIDE 0.9% 1,000 ML IV SCH (17:09)
[2018-07-05] MEDS: LEVOFLOXACIN INJ 500 MG in PREMIX 1 EACH IV SCH (17:32)
[2018-07-05] MEDS: ACETAMINOPHEN INJ 1,000 MG in PREMIX 1 EACH IV SCH (18:35)
[2018-07-05] MEDS: INSULIN GLARGINE 100 UNIT/ML SUBCUT SCH (20:48)
[2018-07-05] MEDS: hydrOXYzine HCL 10 MG TABLET PO SCH (21:21)
[2018-07-05] MEDS: CEFUROXIME INJ 1,500 MG in SYRINGE 1 EACH IV SCH (21:21)
[2018-07-05] MEDS: ATORVASTATIN 20 MG TABLET PO SCH (21:21)
[2018-07-05 22:17] LABS: Osmolality,Calculated 287.1 MOS/KG (273-304); Potassium 4.1 MMOL/L (3.5-5.1)
[2018-07-06] MEDS: ALBUTEROL/IPRATROPIUM 3 ML NEB RESP TX SCH ×4 (00:14→19:12)
[2018-07-06] MEDS: ACETAMINOPHEN INJ 1,000 MG in PREMIX 1 EACH IV SCH (00:28)
[2018-07-06] MEDS: KETOROLAC 15 MG/1 ML VIAL IV SCH ×4 (00:29→18:00)
[2018-07-06] MEDS: methylPREDNISolone SOD SUC 40 MG/1 ML VIAL IV SCH ×2 (00:34→12:32)
[2018-07-06] MEDS: DEXMEDETOMIDINE 200 MCG in SODIUM CHLORIDE 0.9% 48 ML IV PRN (02:37)
[2018-07-06 03:40] LABS: ABG Base Excess 6.4 MMOL/L (-2.5-2.5); ABG HCO3 30.3 MMOL/L (20-26); ABG Oxygen Saturation 99.9 % (95-100); ABG PH 7.496 (7.35-7.45); ABG TCO2 28.3 MMOL/L (23-27)
[2018-07-06 04:11] LABS: Calcium 7.6 MG/DL (8.5-10.1); Osmolality,Calculated 285.1 MOS/KG (273-304)
[2018-07-06] MEDS: ACETAMINOPHEN 500 MG TABLET PO SCH ×3 (05:50→18:15)
[2018-07-06] MEDS: NOREPINEPHRINE 8 MG in SODIUM CHLORIDE 0.9% 242 ML IV PRN (07:07)
[2018-07-06 07:10] LABS: Basophils % 0.1 % (0.0-0.8); Hematocrit 19.1 VOL% (42.0-52.0); Immature Granulocytes % 0.9 %; Immature Granulocytes Absolute 0.15 #; Lymphocytes # 2.2 10*3/uL (1.4-4.0); Lymphocytes % 12.3 % (21.2-54.2); Mean Corpuscular Hemoglobin 29 PG (27-34); Mean Corpuscular Volume 84.5 FL (87-102); Mean Platelet Volume 9.4 FL (9.6-12.0); Monocytes # 1.7 10*3/uL (0.11-0.8); Monocytes % 9.7 % (1.7-12.7); Neutrophils # 13.5 10*3/uL (1.4-7.4); Red Cell Distribution Width 15.7 % (9.3-17.3); White Blood Count 17.5 T/CUMM (4-12)
[2018-07-06 07:16] LABS: Red Blood Count 2.26 MC/CUMM (3.8-5.5)
[2018-07-06 07:17] LABS: Hemoglobin 6.5 GM/DL (14.0-18.0); Platelet Count 173 T/CUMM (130-400)
[2018-07-06] MEDS: INSULIN LISPRO 100 UNIT/ML SUBCUT SCH ×4 (08:00→21:20)
[2018-07-06] MEDS: SODIUM BICARB INJ 50 MEQ in SODIUM CHLORIDE 0.45% 1,000 ML IV SCH (08:00)
[2018-07-06] MEDS ORDERED: SODIUM CHLORIDE 0.9% 1,000 ML IV PRN (08:35)
[2018-07-06] MEDS ORDERED: CALCIUM GLUCONATE 1,000 MG in SODIUM CHLORIDE 0.9% 100 ML IV ONE (10:00)
[2018-07-06 10:25] LABS: ABG Base Excess 5.5 MMOL/L (-2.5-2.5); ABG HCO3 29.4 MMOL/L (20-26); ABG Oxygen Saturation 99.7 % (95-100); ABG PCO2 43.1 MM HG (35-48); ABG PH 7.451 (7.35-7.45); ABG TCO2 28.2 MMOL/L (23-27)
[2018-07-06] MEDS: GABAPENTIN 100 MG CAPSULE PO SCH ×3 (10:30→21:20)
[2018-07-06] MEDS: MONTELUKAST 10 MG TABLET PO SCH (10:30)
[2018-07-06] MEDS: LOSARTAN 50 MG TABLET PO SCH ×2 (10:30→21:20)
[2018-07-06] MEDS: OMEGA 3 ACID ETHYL ESTERS 1 GM CAPSULE PO SCH (10:30)
[2018-07-06] MEDS: VITAMIN E 400 UNIT CAPSULE PO SCH ×2 (10:30→21:20)
[2018-07-06] MEDS: MULTIVITAMIN (BEROCCA) TABLET PO SCH (10:30)
[2018-07-06] MEDS: FLUTICASONE/SALMETEROL 250-50 DISKUS 14 DOSE INH SCH ×2 (10:30→21:21)
[2018-07-06] MEDS: CITALOPRAM 40 MG TABLET PO SCH (10:30)
[2018-07-06] MEDS: CHOLECALCIFEROL 1,000 UNIT TABLET PO SCH (10:30)
[2018-07-06] MEDS: BENZTROPINE 0.5 MG TABLET PO SCH ×2 (10:30→21:20)
[2018-07-06] MEDS: LORATADINE 10 MG TABLET PO SCH (10:30)
[2018-07-06] MEDS: ASPIRIN CHEW 81 MG TABLET PO SCH (10:30)
[2018-07-06] MEDS: CELECOXIB 200 MG CAPSULE PO SCH ×2 (10:30→21:20)
[2018-07-06] MEDS: MAGNESIUM CHLORIDE 64 MG TABLET PO SCH ×2 (10:30→21:20)
[2018-07-06] MEDS: FERROUS SULFATE 325 MG TABLET PO SCH (10:30)
[2018-07-06] MEDS: buPROPion SR 150 MG TABLET PO SCH (10:30)
[2018-07-06] MEDS: PERPHENAZINE 2 MG TABLET PO SCH ×2 (10:30→21:20)
[2018-07-06] MEDS: PANTOPRAZOLE 40 MG VIAL IV SCH (11:10)
[2018-07-06 12:26] LABS: ABG Base Excess 4.9 MMOL/L (-2.5-2.5); ABG HCO3 28.8 MMOL/L (20-26); ABG Oxygen Saturation 97.3 % (95-100); ABG PCO2 44.2 MM HG (35-48); ABG PH 7.434 (7.35-7.45); ABG PO2 85.9 MM HG (80-95); ABG TCO2 27.7 MMOL/L (23-27)
[2018-07-06] MEDS: LEVOFLOXACIN INJ 500 MG in PREMIX 1 EACH IV SCH (12:33)
[2018-07-06] MEDS ORDERED: SODIUM BICARB INJ 50 MEQ in SODIUM CHLORIDE 0.45% 1,000 ML IV SCH (13:02)
[2018-07-06] MEDS: PROPOFOL 1,000 MG/100 ML BOTTLE IV SCH (13:09)
[2018-07-06] MEDS: CEFUROXIME INJ 1,500 MG in SYRINGE 1 EACH IV SCH (13:15)
[2018-07-06] MEDS ORDERED: hydrALAZINE 20 MG/1 ML VIAL IV PRN (15:07)
[2018-07-06 15:19] LABS: Hematocrit 25.2 VOL% (42.0-52.0); Hemoglobin 8.5 GM/DL (14.0-18.0)
[2018-07-06] MEDS: ATORVASTATIN 20 MG TABLET PO SCH (21:20)
[2018-07-06] MEDS: hydrOXYzine HCL 10 MG TABLET PO SCH (21:20)
[2018-07-06] MEDS: INSULIN GLARGINE 100 UNIT/ML SUBCUT SCH (21:21)
[2018-07-06 22:38] LABS: Hematocrit 24.9 VOL% (42.0-52.0); Hemoglobin 8.4 GM/DL (14.0-18.0)
[2018-07-07] MEDS: methylPREDNISolone SOD SUC 40 MG/1 ML VIAL IV SCH ×3 (00:45→22:14)
[2018-07-07] MEDS: KETOROLAC 15 MG/1 ML VIAL IV SCH ×2 (00:47→05:50)
[2018-07-07] MEDS: ACETAMINOPHEN 500 MG TABLET PO SCH ×4 (00:49→17:32)
[2018-07-07] MEDS: ALBUTEROL/IPRATROPIUM 3 ML NEB RESP TX SCH ×4 (01:44→19:13)
[2018-07-07 04:38] LABS: ABG Base Excess 5.6 MMOL/L (-2.5-2.5); ABG HCO3 29.5 MMOL/L (20-26); ABG Oxygen Saturation 93.8 % (95-100); ABG PCO2 42.7 MM HG (35-48); ABG PH 7.456 (7.35-7.45); ABG PO2 66.9 MM HG (80-95); ABG TCO2 27.5 MMOL/L (23-27)
[2018-07-07 04:49] LABS: Basophils % 0.1 % (0.0-0.8); Eosinophils % 0.1 % (0.00-10.9); Hematocrit 26.5 VOL% (42.0-52.0); Hemoglobin 9.1 GM/DL (14.0-18.0); Immature Granulocytes % 0.9 %; Immature Granulocytes Absolute 0.18 #; Lymphocytes # 0.7 10*3/uL (1.4-4.0); Lymphocytes % 3.3 % (21.2-54.2); Mean Corpuscular HGB Conc 34.3 GM/DL (32-36); Mean Corpuscular Hemoglobin 29 PG (27-34); Mean Corpuscular Volume 85.5 FL (87-102); Mean Platelet Volume 9.2 FL (9.6-12.0); Monocytes % 5.2 % (1.7-12.7); Neutrophils # 17.7 10*3/uL (1.4-7.4); Neutrophils % 90.4 % (38.7-73.9); Platelet Count 153 T/CUMM (130-400); Red Cell Distribution Width 15.2 % (9.3-17.3); White Blood Count 19.6 T/CUMM (4-12)
[2018-07-07 05:05] LABS: Calcium 8.2 MG/DL (8.5-10.1)
[2018-07-07 05:06] LABS: Osmolality,Calculated 285.7 MOS/KG (273-304); Potassium 4.3 MMOL/L (3.5-5.1)
[2018-07-07 05:18] LABS: Hypochromasia 1+; Lymphocytes 2 % (20-55); Segmented Neutrophils 92 % (50-85); Total Cells Counted 100
[2018-07-07 05:19] LABS: Platelet Estimate Adequate
[2018-07-07 08:30] LABS: Hemoglobin 9.2 GM/DL (14.0-18.0)
[2018-07-07] MEDS: MONTELUKAST 10 MG TABLET PO SCH (08:37)
[2018-07-07] MEDS: INSULIN LISPRO 100 UNIT/ML SUBCUT SCH ×4 (08:37→22:12)
[2018-07-07] MEDS: CITALOPRAM 40 MG TABLET PO SCH (08:37)
[2018-07-07] MEDS: PERPHENAZINE 2 MG TABLET PO SCH ×2 (08:37→22:11)
[2018-07-07] MEDS: ASPIRIN CHEW 81 MG TABLET PO SCH (08:38)
[2018-07-07] MEDS: MAGNESIUM CHLORIDE 64 MG TABLET PO SCH ×2 (08:38→22:11)
[2018-07-07] MEDS: VITAMIN E 400 UNIT CAPSULE PO SCH ×2 (08:38→22:09)
[2018-07-07] MEDS: CELECOXIB 200 MG CAPSULE PO SCH ×2 (08:38→22:09)
[2018-07-07] MEDS: CHOLECALCIFEROL 1,000 UNIT TABLET PO SCH (08:38)
[2018-07-07] MEDS: MULTIVITAMIN (BEROCCA) TABLET PO SCH (08:38)
[2018-07-07] MEDS: PANTOPRAZOLE 40 MG VIAL IV SCH (08:39)
[2018-07-07] MEDS: BENZTROPINE 0.5 MG TABLET PO SCH ×2 (08:39→22:10)
[2018-07-07] MEDS: LORATADINE 10 MG TABLET PO SCH (08:39)
[2018-07-07] MEDS: GABAPENTIN 100 MG CAPSULE PO SCH ×3 (08:39→22:10)
[2018-07-07] MEDS: FERROUS SULFATE 325 MG TABLET PO SCH (08:39)
[2018-07-07] MEDS: buPROPion SR 150 MG TABLET PO SCH (08:39)
[2018-07-07] MEDS: OMEGA 3 ACID ETHYL ESTERS 1 GM CAPSULE PO SCH (08:39)
[2018-07-07] MEDS: LOSARTAN 50 MG TABLET PO SCH ×2 (08:40→22:08)
[2018-07-07] MEDS: LEVOFLOXACIN INJ 500 MG in PREMIX 1 EACH IV SCH (12:21)
[2018-07-07] MEDS: FLUTICASONE/SALMETEROL 250-50 DISKUS 14 DOSE INH SCH (14:32)
[2018-07-07 16:30] LABS: Hematocrit 27.5 VOL% (42.0-52.0); Hemoglobin 9.2 GM/DL (14.0-18.0)
[2018-07-07] MEDS: ATORVASTATIN 20 MG TABLET PO SCH (22:09)
[2018-07-07] MEDS: hydrOXYzine HCL 10 MG TABLET PO SCH (22:11)
[2018-07-07] MEDS: INSULIN GLARGINE 100 UNIT/ML SUBCUT SCH (22:12)
[2018-07-08] MEDS: ALBUTEROL/IPRATROPIUM 3 ML NEB RESP TX SCH ×4 (00:07→19:38)
[2018-07-08] MEDS: FLUTICASONE/SALMETEROL 250-50 DISKUS 14 DOSE INH SCH ×3 (00:19→21:47)
[2018-07-08] MEDS: ACETAMINOPHEN 500 MG TABLET PO SCH ×5 (00:20→23:16)
[2018-07-08 04:39] LABS: ABG Base Excess 7.7 MMOL/L (-2.5-2.5); ABG HCO3 31.9 MMOL/L (20-26); ABG Oxygen Saturation 94.9 % (95-100); ABG PCO2 43.6 MM HG (35-48); ABG PH 7.482 (7.35-7.45); ABG PO2 80.4 MM HG (80-95); ABG TCO2 33.2 MMOL/L (23-27); Allen Test Positive
[2018-07-08 04:40] LABS: Hematocrit 26.3 VOL% (42.0-52.0); Hemoglobin 8.9 GM/DL (14.0-18.0); Immature Granulocytes % 1.1 %; Immature Granulocytes Absolute 0.23 #; Lymphocytes # 0.9 10*3/uL (1.4-4.0); Lymphocytes % 4.5 % (21.2-54.2); Mean Corpuscular HGB Conc 33.8 GM/DL (32-36); Mean Corpuscular Hemoglobin 29 PG (27-34); Mean Corpuscular Volume 86.2 FL (87-102); Mean Platelet Volume 9.2 FL (9.6-12.0); Monocytes # 0.9 10*3/uL (0.11-0.8); Monocytes % 4.4 % (1.7-12.7); Neutrophils # 18.2 10*3/uL (1.4-7.4); Platelet Count 185 T/CUMM (130-400); Red Blood Count 3.05 MC/CUMM (3.8-5.5); Red Cell Distribution Width 15.1 % (9.3-17.3); White Blood Count 20.2 T/CUMM (4-12)
[2018-07-08 04:58] LABS: Calcium 7.8 MG/DL (8.5-10.1); Osmolality,Calculated 286.4 MOS/KG (273-304); Potassium 3.9 MMOL/L (3.5-5.1)
[2018-07-08 05:00] LABS: Hypochromasia 1+; Lymphocytes 5 % (20-55); Platelet Estimate Adequate; Segmented Neutrophils 92 % (50-85); Total Cells Counted 100
[2018-07-08] MEDS: buPROPion SR 150 MG TABLET PO SCH (09:15)
[2018-07-08] MEDS: CELECOXIB 200 MG CAPSULE PO SCH ×2 (09:15→21:47)
[2018-07-08] MEDS: CHOLECALCIFEROL 1,000 UNIT TABLET PO SCH (09:15)
[2018-07-08] MEDS: VITAMIN E 400 UNIT CAPSULE PO SCH ×2 (09:15→21:49)
[2018-07-08] MEDS: OMEGA 3 ACID ETHYL ESTERS 1 GM CAPSULE PO SCH (09:16)
[2018-07-08] MEDS: MONTELUKAST 10 MG TABLET PO SCH (09:16)
[2018-07-08] MEDS: FERROUS SULFATE 325 MG TABLET PO SCH (09:16)
[2018-07-08] MEDS: GABAPENTIN 100 MG CAPSULE PO SCH ×3 (09:16→21:47)
[2018-07-08] MEDS: ASPIRIN CHEW 81 MG TABLET PO SCH (09:16)
[2018-07-08] MEDS: MAGNESIUM CHLORIDE 64 MG TABLET PO SCH ×2 (09:16→21:47)
[2018-07-08] MEDS: PERPHENAZINE 2 MG TABLET PO SCH ×2 (09:16→21:46)
[2018-07-08] MEDS: MULTIVITAMIN (BEROCCA) TABLET PO SCH (09:16)
[2018-07-08] MEDS: LOSARTAN 50 MG TABLET PO SCH ×2 (09:16→21:47)
[2018-07-08] MEDS: LORATADINE 10 MG TABLET PO SCH (09:16)
[2018-07-08] MEDS: PANTOPRAZOLE 40 MG TABLET PO SCH (09:16)
[2018-07-08] MEDS: BENZTROPINE 0.5 MG TABLET PO SCH ×2 (09:17→21:46)
[2018-07-08] MEDS: INSULIN LISPRO 100 UNIT/ML SUBCUT SCH ×4 (09:17→21:46)
[2018-07-08] MEDS: CITALOPRAM 40 MG TABLET PO SCH (09:19)
[2018-07-08] MEDS: methylPREDNISolone SOD SUC 40 MG/1 ML VIAL IV SCH ×2 (11:00→23:15)
[2018-07-08] MEDS ORDERED: MAGNESIUM HYDROXIDE SUSP 30 ML UDCUP PO PRN (12:56)
[2018-07-08] MEDS: LEVOFLOXACIN INJ 500 MG in PREMIX 1 EACH IV SCH (13:22)
[2018-07-08] MEDS: LACTULOSE 20 GM/30 ML UDCUP PO PRN (13:36)
[2018-07-08] MEDS: INSULIN GLARGINE 100 UNIT/ML SUBCUT SCH (21:46)
[2018-07-08] MEDS: ATORVASTATIN 20 MG TABLET PO SCH (21:47)
[2018-07-08] MEDS: hydrOXYzine HCL 10 MG TABLET PO SCH (21:53)
[2018-07-09] MEDS: ALBUTEROL/IPRATROPIUM 3 ML NEB RESP TX SCH ×4 (00:04→19:50)
[2018-07-09 04:44] LABS: Hematocrit 26.4 VOL% (42.0-52.0); Hemoglobin 8.8 GM/DL (14.0-18.0); Immature Granulocytes % 0.9 %; Lymphocytes # 0.8 10*3/uL (1.4-4.0); Lymphocytes % 3.7 % (21.2-54.2); Mean Corpuscular HGB Conc 33.3 GM/DL (32-36); Mean Corpuscular Hemoglobin 29 PG (27-34); Mean Platelet Volume 9.4 FL (9.6-12.0); Monocytes # 0.8 10*3/uL (0.11-0.8); Monocytes % 3.8 % (1.7-12.7); Neutrophils # 19.6 10*3/uL (1.4-7.4); Neutrophils % 91.6 % (38.7-73.9); Platelet Count 220 T/CUMM (130-400); Red Cell Distribution Width 15.4 % (9.3-17.3); White Blood Count 21.4 T/CUMM (4-12)
[2018-07-09 05:05] LABS: Calcium 8.1 MG/DL (8.5-10.1); Osmolality,Calculated 279.7 MOS/KG (273-304)
[2018-07-09 05:13] LABS: Hypochromasia 1+; Lymphocytes 5 % (20-55); Segmented Neutrophils 93 % (50-85); Total Cells Counted 100
[2018-07-09 05:14] LABS: Microcytosis Slight; Platelet Estimate Normal
[2018-07-09] MEDS: ACETAMINOPHEN 500 MG TABLET PO SCH ×3 (05:50→18:33)
[2018-07-09] MEDS: PERPHENAZINE 2 MG TABLET PO SCH ×2 (09:57→21:49)
[2018-07-09] MEDS: CHOLECALCIFEROL 1,000 UNIT TABLET PO SCH (09:57)
[2018-07-09] MEDS: CELECOXIB 200 MG CAPSULE PO SCH ×2 (09:57→21:49)
[2018-07-09] MEDS: MAGNESIUM CHLORIDE 64 MG TABLET PO SCH ×2 (09:58→21:49)
[2018-07-09] MEDS: BENZTROPINE 0.5 MG TABLET PO SCH ×2 (09:59→21:49)
[2018-07-09] MEDS: MONTELUKAST 10 MG TABLET PO SCH (09:59)
[2018-07-09] MEDS: OMEGA 3 ACID ETHYL ESTERS 1 GM CAPSULE PO SCH (09:59)
[2018-07-09] MEDS: GABAPENTIN 100 MG CAPSULE PO SCH ×3 (10:00→21:49)
[2018-07-09] MEDS: MULTIVITAMIN (BEROCCA) TABLET PO SCH (10:00)
[2018-07-09] MEDS: buPROPion SR 150 MG TABLET PO SCH (10:00)
[2018-07-09] MEDS: ASPIRIN CHEW 81 MG TABLET PO SCH (10:00)
[2018-07-09] MEDS: LORATADINE 10 MG TABLET PO SCH (10:00)
[2018-07-09] MEDS: PANTOPRAZOLE 40 MG TABLET PO SCH (10:01)
[2018-07-09] MEDS: LOSARTAN 50 MG TABLET PO SCH ×2 (10:01→21:51)
[2018-07-09] MEDS: FERROUS SULFATE 325 MG TABLET PO SCH (10:01)
[2018-07-09] MEDS: FLUTICASONE/SALMETEROL 250-50 DISKUS 14 DOSE INH SCH ×2 (10:02→21:51)
[2018-07-09] MEDS: methylPREDNISolone SOD SUC 40 MG/1 ML VIAL IV SCH ×2 (10:08→21:48)
[2018-07-09] MEDS: VITAMIN E 400 UNIT CAPSULE PO SCH ×2 (10:08→21:47)
[2018-07-09] MEDS: INSULIN LISPRO 100 UNIT/ML SUBCUT SCH ×4 (10:13→21:47)
[2018-07-09] MEDS: LEVOFLOXACIN INJ 500 MG in PREMIX 1 EACH IV SCH (13:00)
[2018-07-09] MEDS: LACTULOSE 20 GM/30 ML UDCUP PO PRN (13:03)
[2018-07-09] MEDS ORDERED: SODIUM PHOSPHATE ENEMA 133 ML BOTTLE RECTAL ONE (19:09)
[2018-07-09] MEDS: INSULIN GLARGINE 100 UNIT/ML SUBCUT SCH (21:47)
[2018-07-09] MEDS: hydrOXYzine HCL 10 MG TABLET PO SCH (21:48)
[2018-07-09] MEDS: CITALOPRAM 40 MG TABLET PO SCH (21:48)
[2018-07-09] MEDS: ATORVASTATIN 20 MG TABLET PO SCH (21:49)
[2018-07-10] MEDS: ACETAMINOPHEN 500 MG TABLET PO SCH ×4 (00:59→21:38)
[2018-07-10] MEDS: ALBUTEROL/IPRATROPIUM 3 ML NEB RESP TX SCH ×4 (01:26→19:26)
[2018-07-10] MEDS: INSULIN LISPRO 100 UNIT/ML SUBCUT SCH ×4 (09:50→21:40)
[2018-07-10] MEDS: BENZTROPINE 0.5 MG TABLET PO SCH ×2 (09:58→21:40)
[2018-07-10] MEDS: MAGNESIUM CHLORIDE 64 MG TABLET PO SCH ×2 (09:58→21:39)
[2018-07-10] MEDS: PERPHENAZINE 2 MG TABLET PO SCH ×2 (09:58→21:38)
[2018-07-10] MEDS: MONTELUKAST 10 MG TABLET PO SCH (09:58)
[2018-07-10] MEDS: ASPIRIN CHEW 81 MG TABLET PO SCH (09:59)
[2018-07-10] MEDS: buPROPion SR 150 MG TABLET PO SCH (09:59)
[2018-07-10] MEDS: CELECOXIB 200 MG CAPSULE PO SCH ×2 (09:59→21:39)
[2018-07-10] MEDS: FERROUS SULFATE 325 MG TABLET PO SCH (09:59)
[2018-07-10] MEDS: VITAMIN E 400 UNIT CAPSULE PO SCH ×2 (09:59→21:40)
[2018-07-10] MEDS: OMEGA 3 ACID ETHYL ESTERS 1 GM CAPSULE PO SCH (09:59)
[2018-07-10] MEDS: LOSARTAN 50 MG TABLET PO SCH ×2 (09:59→21:39)
[2018-07-10] MEDS: PANTOPRAZOLE 40 MG TABLET PO SCH (09:59)
[2018-07-10] MEDS: LORATADINE 10 MG TABLET PO SCH (09:59)
[2018-07-10] MEDS: GABAPENTIN 100 MG CAPSULE PO SCH ×3 (10:00→21:39)
[2018-07-10] MEDS: MULTIVITAMIN (BEROCCA) TABLET PO SCH (10:00)
[2018-07-10] MEDS: FLUTICASONE/SALMETEROL 250-50 DISKUS 14 DOSE INH SCH ×2 (10:04→21:40)
[2018-07-10] MEDS: methylPREDNISolone SOD SUC 40 MG/1 ML VIAL IV SCH ×2 (10:05→21:41)
[2018-07-10] MEDS: CHOLECALCIFEROL 1,000 UNIT TABLET PO SCH (10:45)
[2018-07-10 11:23] LABS: Calcium 8.6 MG/DL (8.5-10.1); Potassium 3.9 MMOL/L (3.5-5.1)
[2018-07-10 11:38] LABS: Basophils % 0.1 % (0.0-0.8); Eosinophils # 0.3 10*3/uL (0.0-0.87); Eosinophils % 1.1 % (0.00-10.9); Hematocrit 28.9 VOL% (42.0-52.0); Hemoglobin 9.7 GM/DL (14.0-18.0); Immature Granulocytes Absolute 0.22 #; Lymphocytes # 2.4 10*3/uL (1.4-4.0); Lymphocytes % 10.3 % (21.2-54.2); Mean Corpuscular HGB Conc 33.6 GM/DL (32-36); Mean Corpuscular Hemoglobin 30 PG (27-34); Mean Corpuscular Volume 89.2 FL (87-102); Mean Platelet Volume 9.5 FL (9.6-12.0); Monocytes # 1.7 10*3/uL (0.11-0.8); Monocytes % 7.2 % (1.7-12.7); Neutrophils # 18.3 10*3/uL (1.4-7.4); Neutrophils % 80.3 % (38.7-73.9); Platelet Count 280 T/CUMM (130-400); Red Blood Count 3.24 MC/CUMM (3.8-5.5); Red Cell Distribution Width 15.9 % (9.3-17.3); White Blood Count 22.8 T/CUMM (4-12)
[2018-07-10 11:59] LABS: Eosinophils 3 % (0-10); Hypochromasia 1+; Lymphocytes 12 % (20-55); Microcytosis Slight; Platelet Estimate Adequate; Segmented Neutrophils 80 % (50-85); Total Cells Counted 100
[2018-07-10] MEDS: LEVOFLOXACIN INJ 500 MG in PREMIX 1 EACH IV SCH (12:19)
[2018-07-10] MEDS: CITALOPRAM 40 MG TABLET PO SCH (21:39)
[2018-07-10] MEDS: INSULIN GLARGINE 100 UNIT/ML SUBCUT SCH (21:40)
[2018-07-10] MEDS: ATORVASTATIN 20 MG TABLET PO SCH (21:40)
[2018-07-10] MEDS: hydrOXYzine HCL 10 MG TABLET PO SCH (21:40)
[2018-07-11] MEDS: ALBUTEROL/IPRATROPIUM 3 ML NEB RESP TX SCH ×4 (00:41→19:46)
[2018-07-11] MEDS: ACETAMINOPHEN 500 MG TABLET PO SCH ×4 (03:10→19:17)
[2018-07-11 05:15] LABS: Basophils % 0.1 % (0.0-0.8); Eosinophils # 0.1 10*3/uL (0.0-0.87); Eosinophils % 0.3 % (0.00-10.9); Hematocrit 29.8 VOL% (42.0-52.0); Hemoglobin 9.8 GM/DL (14.0-18.0); Immature Granulocytes % 1.2 %; Immature Granulocytes Absolute 0.32 #; Lymphocytes # 1.6 10*3/uL (1.4-4.0); Mean Corpuscular HGB Conc 32.9 GM/DL (32-36); Mean Corpuscular Hemoglobin 30 PG (27-34); Mean Corpuscular Volume 89.8 FL (87-102); Mean Platelet Volume 9.4 FL (9.6-12.0); Monocytes # 1.8 10*3/uL (0.11-0.8); Monocytes % 6.7 % (1.7-12.7); Neutrophils # 22.8 10*3/uL (1.4-7.4); Neutrophils % 85.7 % (38.7-73.9); Platelet Count 283 T/CUMM (130-400); Red Blood Count 3.32 MC/CUMM (3.8-5.5); White Blood Count 26.6 T/CUMM (4-12)
[2018-07-11 05:41] LABS: Calcium 8.9 MG/DL (8.5-10.1); Osmolality,Calculated 275.7 MOS/KG (273-304); Potassium 4.4 MMOL/L (3.5-5.1)
[2018-07-11 05:48] LABS: Eosinophils 2 % (0-10); Hypochromasia 1+; Lymphocytes 6 % (20-55); Microcytosis Slight; Platelet Estimate Adequate; Segmented Neutrophils 87 % (50-85); Total Cells Counted 100
[2018-07-11] MEDS: LORATADINE 10 MG TABLET PO SCH (08:23)
[2018-07-11] MEDS: PERPHENAZINE 2 MG TABLET PO SCH ×2 (08:23→22:43)
[2018-07-11] MEDS: BENZTROPINE 0.5 MG TABLET PO SCH ×2 (08:23→22:44)
[2018-07-11] MEDS: FERROUS SULFATE 325 MG TABLET PO SCH (08:23)
[2018-07-11] MEDS: CELECOXIB 200 MG CAPSULE PO SCH ×2 (08:23→22:43)
[2018-07-11] MEDS: ASPIRIN CHEW 81 MG TABLET PO SCH (08:24)
[2018-07-11] MEDS: OMEGA 3 ACID ETHYL ESTERS 1 GM CAPSULE PO SCH (08:24)
[2018-07-11] MEDS: MAGNESIUM CHLORIDE 64 MG TABLET PO SCH ×2 (08:24→22:42)
[2018-07-11] MEDS: MONTELUKAST 10 MG TABLET PO SCH (08:24)
[2018-07-11] MEDS: CHOLECALCIFEROL 1,000 UNIT TABLET PO SCH (08:24)
[2018-07-11] MEDS: buPROPion SR 150 MG TABLET PO SCH (08:25)
[2018-07-11] MEDS: PANTOPRAZOLE 40 MG TABLET PO SCH (08:25)
[2018-07-11] MEDS: LOSARTAN 50 MG TABLET PO SCH ×2 (08:25→22:44)
[2018-07-11] MEDS: GABAPENTIN 100 MG CAPSULE PO SCH ×3 (08:25→22:44)
[2018-07-11] MEDS: MULTIVITAMIN (BEROCCA) TABLET PO SCH (08:25)
[2018-07-11] MEDS: INSULIN LISPRO 100 UNIT/ML SUBCUT SCH ×4 (08:30→22:46)
[2018-07-11] MEDS: VITAMIN E 400 UNIT CAPSULE PO SCH ×2 (09:00→22:43)
[2018-07-11] MEDS ORDERED: RACEPINEPHRINE 0.5 ML NEB RESP TX SCH (09:00)
[2018-07-11] MEDS: methylPREDNISolone SOD SUC 40 MG/1 ML VIAL IV SCH ×2 (12:16→22:46)
[2018-07-11] MEDS: LEVOFLOXACIN INJ 500 MG in PREMIX 1 EACH IV SCH (12:17)
[2018-07-11] MEDS: FLUTICASONE/SALMETEROL 250-50 DISKUS 14 DOSE INH SCH ×2 (12:44→22:45)
[2018-07-11] MEDS: RACEPINEPHRINE 0.5 ML NEB RESP TX SCH ×2 (12:48→19:48)
[2018-07-11] MEDS: CITALOPRAM 40 MG TABLET PO SCH (22:43)
[2018-07-11] MEDS: hydrOXYzine HCL 10 MG TABLET PO SCH (22:44)
[2018-07-11] MEDS: ATORVASTATIN 20 MG TABLET PO SCH (22:44)
[2018-07-11] MEDS: INSULIN GLARGINE 100 UNIT/ML SUBCUT SCH (22:45)
[2018-07-12] MEDS: ACETAMINOPHEN 500 MG TABLET PO SCH ×5 (00:48→23:27)
[2018-07-12] MEDS: ALBUTEROL/IPRATROPIUM 3 ML NEB RESP TX SCH ×4 (01:09→19:45)
[2018-07-12] MEDS: RACEPINEPHRINE 0.5 ML NEB RESP TX SCH ×4 (01:15→19:45)
[2018-07-12 04:26] LABS: Basophils % 0.1 % (0.0-0.8); Eosinophils % 0.2 % (0.00-10.9); Hematocrit 29.4 VOL% (42.0-52.0); Hemoglobin 9.5 GM/DL (14.0-18.0); Immature Granulocytes Absolute 0.27 #; Lymphocytes # 1.1 10*3/uL (1.4-4.0); Lymphocytes % 4.2 % (21.2-54.2); Mean Corpuscular HGB Conc 32.3 GM/DL (32-36); Mean Corpuscular Hemoglobin 29 PG (27-34); Mean Corpuscular Volume 89.4 FL (87-102); Mean Platelet Volume 9.2 FL (9.6-12.0); Monocytes # 1.3 10*3/uL (0.11-0.8); Monocytes % 4.9 % (1.7-12.7); Neutrophils # 23.2 10*3/uL (1.4-7.4); Neutrophils % 89.6 % (38.7-73.9); Platelet Count 303 T/CUMM (130-400); Red Blood Count 3.29 MC/CUMM (3.8-5.5); White Blood Count 25.9 T/CUMM (4-12)
[2018-07-12 04:44] LABS: Calcium 7.9 MG/DL (8.5-10.1); Osmolality,Calculated 278.8 MOS/KG (273-304); Potassium 4.3 MMOL/L (3.5-5.1)
[2018-07-12 04:49] LABS: Hypochromasia 1+; Lymphocytes 5 % (20-55); Segmented Neutrophils 91 % (50-85); Total Cells Counted 100
[2018-07-12 04:50] LABS: Microcytosis Slight; Platelet Estimate Normal; Polychromasia Slight
[2018-07-12] MEDS: CHOLECALCIFEROL 1,000 UNIT TABLET PO SCH (09:58)
[2018-07-12] MEDS: FERROUS SULFATE 325 MG TABLET PO SCH (09:58)
[2018-07-12] MEDS: MONTELUKAST 10 MG TABLET PO SCH (09:59)
[2018-07-12] MEDS: predniSONE 20 MG TABLET PO SCH (09:59)
[2018-07-12] MEDS: LOSARTAN 50 MG TABLET PO SCH ×2 (09:59→22:28)
[2018-07-12] MEDS: ASPIRIN CHEW 81 MG TABLET PO SCH (09:59)
[2018-07-12] MEDS: MAGNESIUM CHLORIDE 64 MG TABLET PO SCH ×2 (09:59→22:28)
[2018-07-12] MEDS: LORATADINE 10 MG TABLET PO SCH (09:59)
[2018-07-12] MEDS: PERPHENAZINE 2 MG TABLET PO SCH ×2 (10:00→22:28)
[2018-07-12] MEDS: OMEGA 3 ACID ETHYL ESTERS 1 GM CAPSULE PO SCH (10:00)
[2018-07-12] MEDS: MULTIVITAMIN (BEROCCA) TABLET PO SCH (10:00)
[2018-07-12] MEDS: BENZTROPINE 0.5 MG TABLET PO SCH ×2 (10:00→22:28)
[2018-07-12] MEDS: FLUTICASONE/SALMETEROL 250-50 DISKUS 14 DOSE INH SCH ×2 (10:00→22:28)
[2018-07-12] MEDS: PANTOPRAZOLE 40 MG TABLET PO SCH (10:00)
[2018-07-12] MEDS: CELECOXIB 200 MG CAPSULE PO SCH ×2 (10:00→22:28)
[2018-07-12] MEDS: buPROPion SR 150 MG TABLET PO SCH (10:00)
[2018-07-12] MEDS: INSULIN LISPRO 100 UNIT/ML SUBCUT SCH ×4 (10:01→22:28)
[2018-07-12] MEDS: VITAMIN E 400 UNIT CAPSULE PO SCH ×2 (10:10→22:27)
[2018-07-12] MEDS: GABAPENTIN 100 MG CAPSULE PO SCH ×3 (10:10→22:28)
[2018-07-12] MEDS: traMADol 50 MG TABLET PO PRN ×2 (10:52→23:27)
[2018-07-12] MEDS: INSULIN GLARGINE 100 UNIT/ML SUBCUT SCH (22:27)
[2018-07-12] MEDS: CITALOPRAM 40 MG TABLET PO SCH (22:28)
[2018-07-12] MEDS: ATORVASTATIN 20 MG TABLET PO SCH (22:28)
[2018-07-12] MEDS: hydrOXYzine HCL 10 MG TABLET PO SCH (22:28)
[2018-07-13] MEDS: ALBUTEROL/IPRATROPIUM 3 ML NEB RESP TX SCH ×4 (00:10→19:46)
[2018-07-13] MEDS: RACEPINEPHRINE 0.5 ML NEB RESP TX SCH ×4 (00:10→19:46)
[2018-07-13] MEDS: MORPHINE 4 MG/1 ML VIAL IV PRN ×2 (00:35→16:07)
[2018-07-13] MEDS: LACTULOSE 20 GM/30 ML UDCUP PO PRN (04:30)
[2018-07-13] MEDS: ACETAMINOPHEN 500 MG TABLET PO SCH ×3 (05:24→18:17)
[2018-07-13] MEDS: traMADol 50 MG TABLET PO PRN (06:46)
[2018-07-13] MEDS: INSULIN LISPRO 100 UNIT/ML SUBCUT SCH ×4 (09:21→21:56)
[2018-07-13] MEDS: FLUTICASONE/SALMETEROL 250-50 DISKUS 14 DOSE INH SCH ×2 (09:22→21:56)
[2018-07-13] MEDS: MULTIVITAMIN (BEROCCA) TABLET PO SCH (09:23)
[2018-07-13] MEDS: ASPIRIN CHEW 81 MG TABLET PO SCH (09:23)
[2018-07-13] MEDS: MONTELUKAST 10 MG TABLET PO SCH (09:23)
[2018-07-13] MEDS: CHOLECALCIFEROL 1,000 UNIT TABLET PO SCH (09:23)
[2018-07-13] MEDS: LOSARTAN 50 MG TABLET PO SCH ×2 (09:23→21:54)
[2018-07-13] MEDS: OMEGA 3 ACID ETHYL ESTERS 1 GM CAPSULE PO SCH (09:23)
[2018-07-13] MEDS: FERROUS SULFATE 325 MG TABLET PO SCH (09:24)
[2018-07-13] MEDS: GABAPENTIN 100 MG CAPSULE PO SCH ×3 (09:24→21:55)
[2018-07-13] MEDS: PERPHENAZINE 2 MG TABLET PO SCH ×2 (09:24→21:55)
[2018-07-13] MEDS: CELECOXIB 200 MG CAPSULE PO SCH ×2 (09:24→21:54)
[2018-07-13] MEDS: PANTOPRAZOLE 40 MG TABLET PO SCH (09:24)
[2018-07-13] MEDS: VITAMIN E 400 UNIT CAPSULE PO SCH ×2 (09:24→21:56)
[2018-07-13] MEDS: buPROPion SR 150 MG TABLET PO SCH (09:24)
[2018-07-13] MEDS: MAGNESIUM CHLORIDE 64 MG TABLET PO SCH ×2 (09:24→21:54)
[2018-07-13] MEDS: LORATADINE 10 MG TABLET PO SCH (09:24)
[2018-07-13] MEDS: BENZTROPINE 0.5 MG TABLET PO SCH ×2 (09:24→21:56)
[2018-07-13] MEDS: predniSONE 20 MG TABLET PO SCH (09:28)
[2018-07-13] MEDS: INSULIN GLARGINE 100 UNIT/ML SUBCUT SCH (21:53)
[2018-07-13] MEDS: ATORVASTATIN 20 MG TABLET PO SCH (21:55)
[2018-07-13] MEDS: CITALOPRAM 40 MG TABLET PO SCH (21:55)
[2018-07-13] MEDS: hydrOXYzine HCL 10 MG TABLET PO SCH (21:56)
[2018-07-14] MEDS: ACETAMINOPHEN 500 MG TABLET PO SCH ×3 (00:20→11:52)
[2018-07-14] MEDS: ALBUTEROL/IPRATROPIUM 3 ML NEB RESP TX SCH ×2 (01:33→07:27)
[2018-07-14] MEDS: RACEPINEPHRINE 0.5 ML NEB RESP TX SCH ×2 (01:33→07:27)
[2018-07-14 06:40] LABS: Basophils % 0.1 % (0.0-0.8); Eosinophils # 0.6 10*3/uL (0.0-0.87); Eosinophils % 3.1 % (0.00-10.9); Hematocrit 27.3 VOL% (42.0-52.0); Hemoglobin 8.9 GM/DL (14.0-18.0); Immature Granulocytes % 0.8 %; Immature Granulocytes Absolute 0.17 #; Lymphocytes # 1.8 10*3/uL (1.4-4.0); Mean Corpuscular HGB Conc 32.6 GM/DL (32-36); Mean Corpuscular Hemoglobin 29 PG (27-34); Mean Corpuscular Volume 89.2 FL (87-102); Mean Platelet Volume 8.8 FL (9.6-12.0); Monocytes # 1.1 10*3/uL (0.11-0.8); Monocytes % 5.5 % (1.7-12.7); Neutrophils # 16.5 10*3/uL (1.4-7.4); Neutrophils % 81.5 % (38.7-73.9); Platelet Count 312 T/CUMM (130-400); Red Blood Count 3.06 MC/CUMM (3.8-5.5); Red Cell Distribution Width 15.9 % (9.3-17.3); White Blood Count 20.2 T/CUMM (4-12)
[2018-07-14 06:58] LABS: Calcium 9.1 MG/DL (8.5-10.1); Osmolality,Calculated 277.7 MOS/KG (273-304); Potassium 4.6 MMOL/L (3.5-5.1)
[2018-07-14 07:00] LABS: Eosinophils 4 % (0-10); Hypochromasia 1+; Lymphocytes 7 % (20-55); Ovalocytes Slight; Platelet Estimate Adequate; Segmented Neutrophils 86 % (50-85); Total Cells Counted 100
[2018-07-14 07:01] LABS: Microcytosis Slight
[2018-07-14] MEDS: INSULIN LISPRO 100 UNIT/ML SUBCUT SCH ×2 (09:24→11:52)
[2018-07-14] MEDS: LOSARTAN 50 MG TABLET PO SCH (09:25)
[2018-07-14] MEDS: CHOLECALCIFEROL 1,000 UNIT TABLET PO SCH (09:25)
[2018-07-14] MEDS: MAGNESIUM CHLORIDE 64 MG TABLET PO SCH (09:25)
[2018-07-14] MEDS: buPROPion SR 150 MG TABLET PO SCH (09:26)
[2018-07-14] MEDS: PERPHENAZINE 2 MG TABLET PO SCH (09:26)
[2018-07-14] MEDS: OMEGA 3 ACID ETHYL ESTERS 1 GM CAPSULE PO SCH (09:26)
[2018-07-14] MEDS: CELECOXIB 200 MG CAPSULE PO SCH (09:26)
[2018-07-14] MEDS: MONTELUKAST 10 MG TABLET PO SCH (09:26)
[2018-07-14] MEDS: VITAMIN E 400 UNIT CAPSULE PO SCH (09:26)
[2018-07-14] MEDS: PANTOPRAZOLE 40 MG TABLET PO SCH (09:26)
[2018-07-14] MEDS: BENZTROPINE 0.5 MG TABLET PO SCH (09:26)
[2018-07-14] MEDS: predniSONE 20 MG TABLET PO SCH (09:26)
[2018-07-14] MEDS: MULTIVITAMIN (BEROCCA) TABLET PO SCH (09:26)
[2018-07-14] MEDS: GABAPENTIN 100 MG CAPSULE PO SCH (09:26)
[2018-07-14] MEDS: FERROUS SULFATE 325 MG TABLET PO SCH (09:27)
[2018-07-14] MEDS: LORATADINE 10 MG TABLET PO SCH (09:27)
[2018-07-14] MEDS: ASPIRIN CHEW 81 MG TABLET PO SCH (09:27)
[2018-07-14] MEDS: FLUTICASONE/SALMETEROL 250-50 DISKUS 14 DOSE INH SCH (09:29)
[2018-07-14 11:52] VITALS: BP 120/55
== END 2018-07-14 14:28 | disposition home health service (06) | DRG 163 ==
LOC: EDBD → EDUNIT# → N.EDINP 07:00 → N.ED 07:00 → INTOOBSV 10:49 → OBSVTOIN 10:49 → SUATTDRO 11:17 → N.5E 11:30 → SUATTDRO 06-29 12:22 → N.ICU 07-05 10:19 → N.TELEN 07-08 06:09
PROVIDERS: ADMIT Hospitalist; ATTEND Internal Medicine

== ENCOUNTER 2018-07-17 02:13 | Inpatient (IN) ==
[2018-07-17] MEDS ORDERED: ALBUTEROL/IPRATROPIUM 3 ML NEB RESP TX STA (02:29)
[2018-07-17] MEDS ORDERED: methylPREDNISolone SOD SUC 125 MG/2 ML VIAL IV STA (02:29)
[2018-07-17 03:06] LABS: Basophils % 0.2 % (0.0-0.8); Eosinophils # 0.2 10*3/uL (0.0-0.87); Eosinophils % 1.2 % (0.00-10.9); Hematocrit 26.2 VOL% (42.0-52.0); Hemoglobin 8.6 GM/DL (14.0-18.0); Immature Granulocytes % 0.6 %; Immature Granulocytes Absolute 0.11 #; Lymphocytes # 1.3 10*3/uL (1.4-4.0); Mean Corpuscular HGB Conc 32.8 GM/DL (32-36); Mean Corpuscular Hemoglobin 29 PG (27-34); Mean Corpuscular Volume 87.3 FL (87-102); Mean Platelet Volume 8.8 FL (9.6-12.0); Monocytes # 1.2 10*3/uL (0.11-0.8); Monocytes % 6.8 % (1.7-12.7); Neutrophils # 15.2 10*3/uL (1.4-7.4); Neutrophils % 84.2 % (38.7-73.9); Platelet Count 405 T/CUMM (130-400); Red Cell Distribution Width 16.1 % (9.3-17.3)
[2018-07-17 03:24] LABS: Albumin 2.4 G/DL (3.4-5.0); Bilirubin,Total 0.7 MG/DL (0.2-1.0); Osmolality,Calculated 271.5 MOS/KG (273-304); Potassium 4.2 MMOL/L (3.5-5.1); Total Protein 6.3 G/DL (6.4-8.3)
[2018-07-17] MEDS ORDERED: ONDANSETRON 4 MG/2 ML VIAL ONE (03:24)
[2018-07-17] MEDS ORDERED: MORPHINE 4 MG/1 ML VIAL IV STA ×2 (03:25→03:26)
[2018-07-17] MEDS ORDERED: MORPHINE 10 MG/1 ML VIAL ONE (03:25)
[2018-07-17] MEDS ORDERED: ONDANSETRON 4 MG/2 ML VIAL IM STA (03:26)
[2018-07-17] MEDS ORDERED: ONDANSETRON 4 MG/2 ML VIAL IV STA (03:27)
[2018-07-17] MEDS ORDERED: cefTRIAXone 1,000 MG in SODIUM CHLORIDE 0.9% 100 ML IV STA (03:44)
[2018-07-17] MEDS ORDERED: DEXTROSE 50% 25 GM/50 ML VIAL IV PRN ×2 (06:36→11:19)
[2018-07-17] MEDS ORDERED: ALBUTEROL/IPRATROPIUM 3 ML NEB RESP TX PRN (06:36)
[2018-07-17] MEDS ORDERED: PIPERACILLIN/TAZOBACTAM 4,500 MG in SODIUM CHLORIDE 0.9% 100 ML IV SCH (06:36)
[2018-07-17] MEDS ORDERED: GLUCAGON 1 MG VIAL IM PRN ×2 (06:36→11:19)
[2018-07-17] MEDS ORDERED: ACETAMINOPHEN 325 MG TABLET PO PRN (06:36)
[2018-07-17] MEDS: ENOXAPARIN 40 MG/0.4 ML SYRINGE SUBCUT SCH (07:24)
[2018-07-17 07:40] LABS: Risk Ratio 2.6; VLDL CHOLESTEROL 20.2 MG/DL
[2018-07-17] MEDS: ACETAMINOPHEN 500 MG TABLET PO SCH ×3 (08:27→21:38)
[2018-07-17] MEDS: FLUTICASONE/SALMETEROL 250-50 DISKUS 14 DOSE INH SCH ×2 (08:28→21:37)
[2018-07-17] MEDS: PERPHENAZINE 2 MG TABLET PO SCH ×2 (08:29→21:39)
[2018-07-17] MEDS: MAGNESIUM CHLORIDE 64 MG TABLET PO SCH ×2 (08:29→21:39)
[2018-07-17] MEDS: LOSARTAN 50 MG TABLET PO SCH ×2 (08:29→21:40)
[2018-07-17] MEDS: VITAMIN E 400 UNIT CAPSULE PO SCH (08:29)
[2018-07-17] MEDS: MULTIVITAMIN (BEROCCA) TABLET PO SCH (08:30)
[2018-07-17] MEDS: FERROUS SULFATE 325 MG TABLET PO SCH (08:30)
[2018-07-17] MEDS: CHOLECALCIFEROL 5,000 UNIT TABLET PO SCH ×2 (08:30→15:59)
[2018-07-17] MEDS: CELECOXIB 200 MG CAPSULE PO SCH ×2 (08:30→21:39)
[2018-07-17] MEDS: BENZTROPINE 0.5 MG TABLET PO SCH ×2 (08:30→21:39)
[2018-07-17] MEDS: LORATADINE 10 MG TABLET PO SCH (08:30)
[2018-07-17] MEDS: MONTELUKAST 10 MG TABLET PO SCH (08:30)
[2018-07-17] MEDS: predniSONE 20 MG TABLET PO SCH (08:30)
[2018-07-17] MEDS: GABAPENTIN 100 MG CAPSULE PO SCH ×3 (08:30→21:39)
[2018-07-17] MEDS: buPROPion SR 150 MG TABLET PO SCH (08:30)
[2018-07-17] MEDS: OMEGA 3 ACID ETHYL ESTERS 1 GM CAPSULE PO SCH (08:30)
[2018-07-17] MEDS: ASPIRIN EC 81 MG TABLET PO SCH (08:30)
[2018-07-17] MEDS: methylPREDNISolone SOD SUC 40 MG/1 ML VIAL IV SCH ×2 (09:23→17:30)
[2018-07-17] MEDS: PIPERACILLIN/TAZOBACTAM 3,375 MG in SODIUM CHLORIDE 0.9% 100 ML IV SCH ×2 (09:23→17:29)
[2018-07-17] MEDS: NICOTINE 21 MG/24 HR PATCH TRANSDERM SCH (09:27)
[2018-07-17] MEDS: INSULIN REGULAR 100 UNIT/ML SUBCUT SCH ×3 (11:33→21:38)
[2018-07-17] MEDS ORDERED: HYDROcodone/CHLORPHENIRAMINE ER 5 ML UDCUP PO PRN (14:16)
[2018-07-17] MEDS: INSULIN NPH 100 UNIT/ML SUBCUT SCH (15:49)
[2018-07-17] MEDS: ATORVASTATIN 20 MG TABLET PO SCH (21:38)
[2018-07-17] MEDS: CITALOPRAM 40 MG TABLET PO SCH (21:39)
[2018-07-17] MEDS: hydrOXYzine HCL 10 MG TABLET PO SCH (21:39)
[2018-07-18] MEDS: methylPREDNISolone SOD SUC 40 MG/1 ML VIAL IV SCH ×3 (03:51→17:29)
[2018-07-18] MEDS: PIPERACILLIN/TAZOBACTAM 3,375 MG in SODIUM CHLORIDE 0.9% 100 ML IV SCH ×3 (03:56→19:52)
[2018-07-18] MEDS: ACETAMINOPHEN 500 MG TABLET PO SCH ×4 (03:57→20:03)
[2018-07-18] MEDS: ENOXAPARIN 40 MG/0.4 ML SYRINGE SUBCUT SCH (06:08)
[2018-07-18 07:27] LABS: Apearance,Urine CLEAR (Clear); Bilirubin,Urine Negative (Negative); Blood, Urine Negative (Negative); Glucose,Urine (UA) 50 mg/dL (Negative); Ketones,Urine Negative (Negative); Mucus,Urine Occasional /LPF (Occasional); Nitrite,Urine Negative (Negative); Protein,Urine Negative; RBC,Urine 6 /HPF (0-4); Urine Color Yellow (Yellow); Urine Specific Gravity 1.018 (1.001-1.035); Urine Urobilinogen < 2.0 EU/DL (0.2-1.0); WBC,Urine 1 /HPF (0-6)
[2018-07-18 07:38] LABS: Calcium 8.8 MG/DL (8.5-10.1); Potassium 4.1 MMOL/L (3.5-5.1); Thyroid Stimulating Hormone 0.673 uIU/ml (0.358-3.74)
[2018-07-18] MEDS: INSULIN REGULAR 100 UNIT/ML SUBCUT SCH ×4 (10:14→22:24)
[2018-07-18] MEDS: INSULIN NPH 100 UNIT/ML SUBCUT SCH ×2 (10:14→17:28)
[2018-07-18] MEDS: NICOTINE 21 MG/24 HR PATCH TRANSDERM SCH (10:15)
[2018-07-18] MEDS: VITAMIN E 400 UNIT CAPSULE PO SCH (10:16)
[2018-07-18] MEDS: BENZTROPINE 0.5 MG TABLET PO SCH ×2 (10:16→20:00)
[2018-07-18] MEDS: MULTIVITAMIN (BEROCCA) TABLET PO SCH (10:16)
[2018-07-18] MEDS: PERPHENAZINE 2 MG TABLET PO SCH ×2 (10:16→20:02)
[2018-07-18] MEDS: OMEGA 3 ACID ETHYL ESTERS 1 GM CAPSULE PO SCH (10:17)
[2018-07-18] MEDS: CELECOXIB 200 MG CAPSULE PO SCH ×2 (10:17→20:00)
[2018-07-18] MEDS: CHOLECALCIFEROL 5,000 UNIT TABLET PO SCH ×2 (10:17→17:28)
[2018-07-18] MEDS: GABAPENTIN 100 MG CAPSULE PO SCH ×3 (10:17→20:02)
[2018-07-18] MEDS: MONTELUKAST 10 MG TABLET PO SCH (10:17)
[2018-07-18] MEDS: MAGNESIUM CHLORIDE 64 MG TABLET PO SCH ×2 (10:17→20:01)
[2018-07-18] MEDS: FERROUS SULFATE 325 MG TABLET PO SCH (10:18)
[2018-07-18] MEDS: LORATADINE 10 MG TABLET PO SCH (10:18)
[2018-07-18] MEDS: predniSONE 20 MG TABLET PO SCH (10:18)
[2018-07-18] MEDS: ASPIRIN EC 81 MG TABLET PO SCH (10:18)
[2018-07-18] MEDS: LOSARTAN 50 MG TABLET PO SCH ×2 (10:18→20:01)
[2018-07-18] MEDS: buPROPion SR 150 MG TABLET PO SCH (10:18)
[2018-07-18] MEDS: MORPHINE 4 MG/1 ML VIAL IV PRN (10:18)
[2018-07-18] MEDS: FLUTICASONE/SALMETEROL 250-50 DISKUS 14 DOSE INH SCH ×2 (10:28→20:04)
[2018-07-18] MEDS: CLORAZEPATE 3.75 MG TABLET PO PRN (19:45)
[2018-07-18] MEDS: ATORVASTATIN 20 MG TABLET PO SCH (20:01)
[2018-07-18] MEDS: hydrOXYzine HCL 10 MG TABLET PO SCH (20:03)
[2018-07-18] MEDS: CITALOPRAM 40 MG TABLET PO SCH (20:03)
[2018-07-19] MEDS: methylPREDNISolone SOD SUC 40 MG/1 ML VIAL IV SCH ×3 (02:32→18:03)
[2018-07-19] MEDS: MORPHINE 4 MG/1 ML VIAL IV PRN (02:34)
[2018-07-19] MEDS: ACETAMINOPHEN 500 MG TABLET PO SCH ×4 (02:37→20:52)
[2018-07-19] MEDS: PIPERACILLIN/TAZOBACTAM 3,375 MG in SODIUM CHLORIDE 0.9% 100 ML IV SCH ×3 (02:37→18:08)
[2018-07-19] MEDS: ENOXAPARIN 40 MG/0.4 ML SYRINGE SUBCUT SCH (06:08)
[2018-07-19] MEDS: CHOLECALCIFEROL 5,000 UNIT TABLET PO SCH ×2 (08:23→16:05)
[2018-07-19] MEDS: INSULIN NPH 100 UNIT/ML SUBCUT SCH ×2 (08:24→16:09)
[2018-07-19] MEDS: PERPHENAZINE 2 MG TABLET PO SCH ×2 (10:03→20:53)
[2018-07-19] MEDS: MULTIVITAMIN (BEROCCA) TABLET PO SCH (10:04)
[2018-07-19] MEDS: MONTELUKAST 10 MG TABLET PO SCH (10:04)
[2018-07-19] MEDS: BENZTROPINE 0.5 MG TABLET PO SCH ×2 (10:04→20:52)
[2018-07-19] MEDS: VITAMIN E 400 UNIT CAPSULE PO SCH (10:04)
[2018-07-19] MEDS: ASPIRIN EC 81 MG TABLET PO SCH (10:04)
[2018-07-19] MEDS: MAGNESIUM CHLORIDE 64 MG TABLET PO SCH ×2 (10:04→20:53)
[2018-07-19] MEDS: NICOTINE 21 MG/24 HR PATCH TRANSDERM SCH (10:05)
[2018-07-19] MEDS: LOSARTAN 50 MG TABLET PO SCH ×2 (10:05→20:53)
[2018-07-19] MEDS: LORATADINE 10 MG TABLET PO SCH (10:05)
[2018-07-19] MEDS: CELECOXIB 200 MG CAPSULE PO SCH ×2 (10:05→20:53)
[2018-07-19] MEDS: OMEGA 3 ACID ETHYL ESTERS 1 GM CAPSULE PO SCH (10:05)
[2018-07-19] MEDS: FERROUS SULFATE 325 MG TABLET PO SCH (10:05)
[2018-07-19] MEDS: GABAPENTIN 100 MG CAPSULE PO SCH ×3 (10:05→20:52)
[2018-07-19] MEDS: predniSONE 20 MG TABLET PO SCH (10:05)
[2018-07-19] MEDS: INSULIN REGULAR 100 UNIT/ML SUBCUT SCH ×4 (10:11→20:53)
[2018-07-19] MEDS: FLUTICASONE/SALMETEROL 250-50 DISKUS 14 DOSE INH SCH ×2 (10:13→20:57)
[2018-07-19] MEDS: buPROPion SR 150 MG TABLET PO SCH (10:39)
[2018-07-19] MEDS: CLORAZEPATE 3.75 MG TABLET PO PRN ×2 (11:43→20:52)
[2018-07-19] MEDS: CITALOPRAM 40 MG TABLET PO SCH (20:52)
[2018-07-19] MEDS: hydrOXYzine HCL 10 MG TABLET PO SCH (20:53)
[2018-07-19] MEDS: ATORVASTATIN 20 MG TABLET PO SCH (20:53)
[2018-07-20] MEDS: methylPREDNISolone SOD SUC 40 MG/1 ML VIAL IV SCH ×3 (02:03→17:07)
[2018-07-20] MEDS: ACETAMINOPHEN 500 MG TABLET PO SCH ×4 (02:04→20:26)
[2018-07-20] MEDS: PIPERACILLIN/TAZOBACTAM 3,375 MG in SODIUM CHLORIDE 0.9% 100 ML IV SCH (02:09)
[2018-07-20] MEDS: ENOXAPARIN 40 MG/0.4 ML SYRINGE SUBCUT SCH (07:46)
[2018-07-20] MEDS: BENZTROPINE 0.5 MG TABLET PO SCH ×2 (08:53→20:26)
[2018-07-20] MEDS: PERPHENAZINE 2 MG TABLET PO SCH ×2 (08:54→20:25)
[2018-07-20] MEDS: predniSONE 20 MG TABLET PO SCH (08:54)
[2018-07-20] MEDS: OMEGA 3 ACID ETHYL ESTERS 1 GM CAPSULE PO SCH (08:54)
[2018-07-20] MEDS: VITAMIN E 400 UNIT CAPSULE PO SCH (08:54)
[2018-07-20] MEDS: LOSARTAN 50 MG TABLET PO SCH ×2 (08:55→20:26)
[2018-07-20] MEDS: GABAPENTIN 100 MG CAPSULE PO SCH ×3 (08:55→20:27)
[2018-07-20] MEDS: MAGNESIUM CHLORIDE 64 MG TABLET PO SCH ×2 (08:55→20:25)
[2018-07-20] MEDS: CELECOXIB 200 MG CAPSULE PO SCH ×2 (08:55→20:25)
[2018-07-20] MEDS: LORATADINE 10 MG TABLET PO SCH (08:56)
[2018-07-20] MEDS: ASPIRIN EC 81 MG TABLET PO SCH (08:56)
[2018-07-20] MEDS: CHOLECALCIFEROL 5,000 UNIT TABLET PO SCH ×2 (08:56→17:09)
[2018-07-20] MEDS: MULTIVITAMIN (BEROCCA) TABLET PO SCH (08:56)
[2018-07-20] MEDS: FERROUS SULFATE 325 MG TABLET PO SCH (08:56)
[2018-07-20] MEDS: MONTELUKAST 10 MG TABLET PO SCH (09:06)
[2018-07-20] MEDS: AMOXICILLIN/CLAV 500 MG TABLET PO SCH ×3 (09:06→20:26)
[2018-07-20] MEDS: INSULIN NPH 100 UNIT/ML SUBCUT SCH ×2 (09:11→17:10)
[2018-07-20] MEDS: NICOTINE 21 MG/24 HR PATCH TRANSDERM SCH (09:12)
[2018-07-20] MEDS: FLUTICASONE/SALMETEROL 250-50 DISKUS 14 DOSE INH SCH ×2 (09:13→21:40)
[2018-07-20] MEDS: buPROPion SR 150 MG TABLET PO SCH (09:14)
[2018-07-20] MEDS: INSULIN REGULAR 100 UNIT/ML SUBCUT SCH ×4 (09:41→21:40)
[2018-07-20] MEDS: hydrOXYzine HCL 10 MG TABLET PO SCH (20:25)
[2018-07-20] MEDS: CITALOPRAM 40 MG TABLET PO SCH (20:27)
[2018-07-20] MEDS: ATORVASTATIN 20 MG TABLET PO SCH (20:27)
[2018-07-21] MEDS: ACETAMINOPHEN 500 MG TABLET PO SCH ×4 (02:55→21:14)
[2018-07-21] MEDS: methylPREDNISolone SOD SUC 40 MG/1 ML VIAL IV SCH ×2 (02:55→09:24)
[2018-07-21] MEDS: INSULIN REGULAR 100 UNIT/ML SUBCUT SCH ×4 (08:12→21:16)
[2018-07-21] MEDS: CELECOXIB 200 MG CAPSULE PO SCH ×2 (09:22→21:15)
[2018-07-21] MEDS: INSULIN NPH 100 UNIT/ML SUBCUT SCH ×2 (09:22→16:59)
[2018-07-21] MEDS: CHOLECALCIFEROL 5,000 UNIT TABLET PO SCH ×2 (09:22→17:58)
[2018-07-21] MEDS: PERPHENAZINE 2 MG TABLET PO SCH ×2 (09:22→21:18)
[2018-07-21] MEDS: ENOXAPARIN 40 MG/0.4 ML SYRINGE SUBCUT SCH (09:22)
[2018-07-21] MEDS: BENZTROPINE 0.5 MG TABLET PO SCH ×2 (09:23→21:14)
[2018-07-21] MEDS: buPROPion SR 150 MG TABLET PO SCH (09:23)
[2018-07-21] MEDS: FERROUS SULFATE 325 MG TABLET PO SCH (09:23)
[2018-07-21] MEDS: MONTELUKAST 10 MG TABLET PO SCH (09:23)
[2018-07-21] MEDS: MULTIVITAMIN (BEROCCA) TABLET PO SCH (09:23)
[2018-07-21] MEDS: VITAMIN E 400 UNIT CAPSULE PO SCH (09:23)
[2018-07-21] MEDS: AMOXICILLIN/CLAV 500 MG TABLET PO SCH ×3 (09:23→21:15)
[2018-07-21] MEDS: OMEGA 3 ACID ETHYL ESTERS 1 GM CAPSULE PO SCH (09:23)
[2018-07-21] MEDS: ASPIRIN EC 81 MG TABLET PO SCH (09:23)
[2018-07-21] MEDS: predniSONE 20 MG TABLET PO SCH (09:23)
[2018-07-21] MEDS: GABAPENTIN 100 MG CAPSULE PO SCH ×3 (09:23→21:15)
[2018-07-21] MEDS: LORATADINE 10 MG TABLET PO SCH (09:23)
[2018-07-21] MEDS: MAGNESIUM CHLORIDE 64 MG TABLET PO SCH ×2 (09:24→21:14)
[2018-07-21] MEDS: NICOTINE 21 MG/24 HR PATCH TRANSDERM SCH (09:24)
[2018-07-21] MEDS: LOSARTAN 50 MG TABLET PO SCH ×2 (09:24→21:16)
[2018-07-21] MEDS: FLUTICASONE/SALMETEROL 250-50 DISKUS 14 DOSE INH SCH (09:52)
[2018-07-21] MEDS: MORPHINE 4 MG/1 ML VIAL IV PRN ×2 (11:25→21:12)
[2018-07-21] MEDS ORDERED: INSULIN NPH 100 UNIT/ML SUBCUT SCH (16:42)
[2018-07-21] MEDS: CLORAZEPATE 3.75 MG TABLET PO PRN (18:44)
[2018-07-21] MEDS: ATORVASTATIN 20 MG TABLET PO SCH (21:14)
[2018-07-21] MEDS: CITALOPRAM 40 MG TABLET PO SCH (21:14)
[2018-07-21] MEDS: hydrOXYzine HCL 10 MG TABLET PO SCH (21:14)
[2018-07-22] MEDS: FLUTICASONE/SALMETEROL 250-50 DISKUS 14 DOSE INH SCH ×2 (04:50→09:02)
[2018-07-22] MEDS: ACETAMINOPHEN 500 MG TABLET PO SCH ×3 (04:50→15:02)
[2018-07-22] MEDS: CLORAZEPATE 3.75 MG TABLET PO PRN (05:51)
[2018-07-22] MEDS: ENOXAPARIN 40 MG/0.4 ML SYRINGE SUBCUT SCH (06:03)
[2018-07-22] MEDS: INSULIN REGULAR 100 UNIT/ML SUBCUT SCH ×2 (08:57→12:02)
[2018-07-22] MEDS: CHOLECALCIFEROL 5,000 UNIT TABLET PO SCH (08:58)
[2018-07-22] MEDS: LOSARTAN 50 MG TABLET PO SCH (08:58)
[2018-07-22] MEDS: MONTELUKAST 10 MG TABLET PO SCH (08:58)
[2018-07-22] MEDS: buPROPion SR 150 MG TABLET PO SCH (08:58)
[2018-07-22] MEDS: GABAPENTIN 100 MG CAPSULE PO SCH (08:59)
[2018-07-22] MEDS: PERPHENAZINE 2 MG TABLET PO SCH (08:59)
[2018-07-22] MEDS: CELECOXIB 200 MG CAPSULE PO SCH (08:59)
[2018-07-22] MEDS: predniSONE 20 MG TABLET PO SCH (08:59)
[2018-07-22] MEDS: OMEGA 3 ACID ETHYL ESTERS 1 GM CAPSULE PO SCH (08:59)
[2018-07-22] MEDS: MAGNESIUM CHLORIDE 64 MG TABLET PO SCH (08:59)
[2018-07-22] MEDS: VITAMIN E 400 UNIT CAPSULE PO SCH (08:59)
[2018-07-22] MEDS: BENZTROPINE 0.5 MG TABLET PO SCH (08:59)
[2018-07-22] MEDS: NICOTINE 21 MG/24 HR PATCH TRANSDERM SCH (08:59)
[2018-07-22] MEDS: AMOXICILLIN/CLAV 500 MG TABLET PO SCH (08:59)
[2018-07-22] MEDS: MULTIVITAMIN (BEROCCA) TABLET PO SCH (08:59)
[2018-07-22] MEDS: ASPIRIN EC 81 MG TABLET PO SCH (08:59)
[2018-07-22] MEDS: FERROUS SULFATE 325 MG TABLET PO SCH (09:00)
[2018-07-22] MEDS: LORATADINE 10 MG TABLET PO SCH (09:02)
[2018-07-22 12:38] VITALS: BP 130/69
== END 2018-07-22 15:39 | disposition hospice, home (50) | DRG 193 ==
LOC: EDUNIT# → EDBD → N.ED 02:13 → SUATTDRO 05:46 → N.EDINP 05:46 → N.5E 06:20
PROVIDERS: ADMIT Hospitalist; ATTEND Internal Medicine

== ENCOUNTER 2018-07-29 09:43 | Inpatient (IN) ==
[2018-07-29] MEDS ORDERED: ALBUTEROL/IPRATROPIUM 3 ML NEB RESP TX STA (10:24)
[2018-07-29] MEDS ORDERED: methylPREDNISolone SOD SUC 125 MG/2 ML VIAL IV STA (10:24)
[2018-07-29] MEDS ORDERED: LEVOFLOXACIN INJ 500 MG in PREMIX 1 EACH IV STA (10:24)
[2018-07-29] MEDS ORDERED: MORPHINE 4 MG/1 ML VIAL ONE (10:59)
[2018-07-29] MEDS ORDERED: LORazepam 2 MG/1 ML VIAL ONE (10:59)
[2018-07-29] MEDS ORDERED: MORPHINE 4 MG/1 ML VIAL IV STA ×2 (11:05→12:01)
[2018-07-29] MEDS ORDERED: LORazepam 2 MG/1 ML VIAL IV STA (11:05)
[2018-07-29] MEDS ORDERED: ONDANSETRON 4 MG/2 ML VIAL IV PRN (11:56)
[2018-07-29] MEDS ORDERED: LORazepam 2 MG/1 ML VIAL IV PRN ×2 (11:59)
[2018-07-29] MEDS: MORPHINE 4 MG/1 ML VIAL IV PRN ×3 (15:32→23:08)
[2018-07-30 00:17] VITALS: BP 161/75
[2018-07-30] MEDS: MORPHINE 4 MG/1 ML VIAL IV PRN ×2 (02:17→04:12)
== END 2018-07-30 05:47 | disposition expired ==
LOC: EDBD → EDUNIT# → N.ED 09:43 → N.EDINP 11:56 → N.4E 12:12
PROVIDERS: ADMIT Internal Medicine; ATTEND Internal Medicine